=== PATIENT | male | born 1965 | race Caucasian/White ===

== ENCOUNTER 2022-04-07 16:58 | Observation (INO) | payer OTHER, SELFPAY ==
[2022-04-07] VITALS (26 sets, daily range): BP systolic 80–130; BP diastolic 52–79; PULSE 68–95; RESP 0–31; TEMP 36.8; O2SAT 97–100
--- NOTE | ~2022-04-07 | CT_ITS ---
EXAMINATION: CT cervical spine wo con DATE: 04/07/2022 17:52 INDICATION: fall, neck pain TECHNIQUE: Computed tomography (CT) of the cervical spine was performed without intravenous contrast. Automated exposure control and iterative reconstruction technique were employed. The dose-length pro duct was 150.54 mGy-cm. COMPARISON: None. FINDINGS: Vertebral Body Alignment: Intact. . Craniocervical and atlantoaxial alignment: Moderate degenerative change. Alignment intact. Osseous structures/fracture: No evidence of a lytic or blastic process in the visualized spine. No e vidence of acute fracture. . Cervical soft tissues: The paraspinal soft tissues planes are maintained. Severe biapical pleural sca rring with pleural blebs. Degenerative changes: Degenerative changes, without severe neural foraminal or central canal narrowin g. IMPRESSION: No acute fracture or traumatic malalignment in the cervical spine Reviewed, dictated and finalized at location K. EATION DIRECTOR
--- NOTE | ~2022-04-07 | MR_ITS ---
EXAMINATION: MR brain/brain stem wo/w con DATE: 04/09/2022 08:20 INDICATION: Seizure. TECHNIQUE: Magnetic resonance imaging (MRI) of the brain and brainstem was performed without and with 10 mL MultiHance intravenous contrast. COMPARISON: Head CT 04/07/2022 FINDINGS: There are scattered areas of nonspecific increased T2-weighted signal intensity in the cere bral white matter. There is an old lacunar infarct in left caudate nucleus. There is no intracranial hemorrhage, acute infarction, or abnormal intracranial mass lesion. The ventricles are normal in size . There is mucosal thickening in the paranasal sinuses. The orbits are normal. The mastoid air cells are normal. IMPRESSION: 1. Old lacunar infarct in left caudate nucleus. 2. Mild nonspecific cerebral white matter disease, which likely represents chronic small vessel ische susu disease. Reviewed, dictated and finalized at location A. KET WASHER IMPRESSION: 1. Old lacunar infarct in left caudate nucleus. 2. 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
--- NOTE | ~2022-04-07 | CT_ITS ---
EXAMINATION: CT brain wo con DATE: 04/07/2022 17:52 INDICATION: seizure like activity, head injury . TECHNIQUE: Computed tomography (CT) of the head was performed without intravenous contrast. The mA wa s adjusted according to patient size. Iterative reconstruction technique was employed. The dose-lengt h product was 605.33 mGy-cm. COMPARISON: 10/03/2004. FINDINGS: No acute intracranial hemorrhage or extra-axial fluid collection. No hydrocephalus, mass, or herniation. No acute ischemic infarct. Unremarkable dural venous sinus attenuation. No acute osseous abnormality. Minimal mucosal thickening in the left maxillary sinus, the remaining aerated spaces are clear. Mild chronic white matter change including asymmetric focal white matter low density in the left jeremiah etal lobe. Atherosclerotic intracranial calcification. Old left basal ganglia lacunar infarct. IMPRESSION: No acute intracranial process. Asymmetric focal white matter low-density left parietal lobe, likely r epresenting asymmetric chronic white matter change, noting that other causes of white matter edema co uld appear similarly. Consider nonemergent but timely outpatient MR of the brain without and with con trast for further characterization. Reviewed, dictated and finalized at location K. SEAMER IMPRESSION: No acute intracranial process. Asymmetric focal white matter low-density left p arietal lobe, likely representing asymmetric chronic white matter change, notin g that other causes of white matter edema could appear similarly. Consider none mergent but timely outpatient MR of the brain without and with contrast for fur ther characterization.
--- NOTE | 2022-04-07 17:12 | ECG_ITS ---
Measurements Intervals [place] Rate: 81 P: 82 NV: 177 QRS: 63 QRSD: 94 T: 76 QT: 385 QTc: 448 Interpretive Statements SINUS RHYTHM POSSIBLE LEFT ATRIAL ENLARGEMENT DELAYED PRECORDIAL R/S TRANSITION BASELINE WANDER- II, III, AVR, AVF, V1-V2 BORDERLINE ECG NO PREVIOUS ECG AVAILABLE FOR COMPARISON Electronically Signed On 04-08-2022 7:40:35 PET NUTRITION SPECIALIST by Afshin Gonsales D.O.
--- NOTE | 2022-04-07 17:14 | ED.SEIZURE ---
HPI - Seizure General Chief Complaint: Seizure <Prisca Tobin PA-C - Last Filed: 04/07/22 22:09> Stated Complaint: seizure <KEELEY Mcnamara Last Filed: 04/07/22 22:09> Time Seen by Provider: 04/07/22 17:09 <Prisca Tobin PA-C - Last Filed: 04/07/22 22:09> Source: patient and family <KEELEY Mcnamara Last Filed: 04/07/22 22:09> Mode of arrival: EMS <KEELEY Mcnamara Last Filed: 04/07/22 22:09> Limitations: other (patient does not remember incident) <KEELEY Mcnamara Last Filed: 04/07/22 22:09> History of Present Illness HPI Narrative: This is a 56-year-old male that presents to the emergency department after seizure-like activity today. Patient reports he remembers feeling funny . He does not remember the events following. His reports she heard a thud and found him on the floor in the living room with generalized body convulsions. This lasted for a couple of minutes. Patient was noted to be incontinent of urine. She called 911. Upon their arrival he was drowsy and slow to respond. Patient is now alert and oriented and back to baseline. He reports a mild headache. No other focal complaints. Denies fever, vision changes, chest pain, shortness of breath, abdominal pain, vomiting, dysuria, numbness or weakness. <Prisca Tobin PA-C - Last Filed: 04/07/22 22:09> Related Data Allergies/Adverse Reactions: Allergies Allergy/AdvReac Type Severity Reaction Status Date / Time No Known Allergies Allergy Unverified 11/29/15 19:37 <KEELEY Mcnamara Last Filed: 04/07/22 22:09> Review of Systems Review of Systems: CONSTITUTIONAL: Denies fever EYES: Denies visual changes ENT: Denies rhinorrhea, congestion, sore throat CARDIOVASCULAR: Denies chest pain, palpitations RESPIRATORY: Denies cough or dyspnea. GASTROINTESTINAL: Denies abdominal pain, nausea, vomiting GENITOURINARY: Denies dysuria SKIN: Denies rash MUSCULOSKELETAL: Denies back pain, joint pain, or myalgia. NEUROLOGIC: Reports headache. Denies numbness, or weakness. PSYCHIATRIC: Reports depression. <Prisca Tobin PA-C - Last Filed: 04/07/22 22:09> All systems reviewed & are unremarkable except as noted in HPI and below <Prisca Tobin PA-C - Last Filed: 04/07/22 22:09> [facility] Past Medical History Medical History: Medical History History of depression <Prisca Tobin PA-C - Last Filed: 04/07/22 22:09> Social History Social History: Social History (Updated 04/07/22 @ 21:26 by Mamadou Zurita DO) Social History: 1 pack a day smoker Smoking packs per day: 1 Smoking cigarettes per day: 20.0 Smoking status: Current every day smoker Alcohol intake: former Alcohol use details: Quit drinking alcohol month ago, has not relapsed Substance use: current Substance use type: marijuana <Prisca Tobin PA-C - Last Filed: 04/07/22 22:09> Exam Narrative: GENERAL: Well-appearing, well-nourished, and in no acute distress. HEAD: Normocephalic, atraumatic. EYES: PERRLA and EOMI. ENT: Nares clear, no rhinorrhea or epistaxis. Mucous membranes moist. Oropharynx without tonsillar hypertrophy exudate or other lesions. Bilateral TMs p[place] non-bulging NECK: Supple. No adenopathy or masses. CHEST: Clear to auscultation. No respiratory distress. No wheezes rales or rhonchi HEART: Regular rate and rhythm. No murmur heard. Normal peripheral pulses. ABDOMEN: Soft, nontender, nondistended, normal active bowel sounds. EXTREMITIES: Normal range of motion. No edema. Strength equal in bilateral upper and lower extremities (5/5) SKIN: Warm, dry, no rash. NEURO: No focal deficits. Alert and oriented x3. Cranial nerves II through XII grossly intact PSYCH: Normal mood and affect <Prisca Tobin PA-C - Last Filed: 04/07/22 22:09> Course Course Emergency Course: Patient updated on wo
[2022-04-07] MEDS: SODIUM CHLORIDE 0.9% IV 1,000 ML 999 ML IV CONT ×2 (17:33→22:51)
[2022-04-07 17:40] LABS: Basophils Absolute Auto 0.1 K/mm3 (0.0-0.1); Basophils Percent Auto 0.6 % (0.2-1.2); Eosinophils Absolute Auto 0.1 K/mm3 (0-0.3); Eosinophils Percent Auto 0.4 % (0-4.4); Hematocrit 38.6 % (42.0-52.0); Hemoglobin 13.1 g/dL (14.0-18.0); Immature Granulocyte Absolute 0.09 K/mm3 (0.00-0.031); Immature Granulocyte Percent A 0.7 % (0-0.5); Lymphocytes Absolute Auto 1.28 K/mm3 (0.9-3.2); Lymphocytes Percent Auto 10.6 % (18.3-44.2); Mean Corpuscular HGB Conc 33.9 g/dl (32-36); Mean Corpuscular Hemoglobin 31.7 pg (26-34); Mean Corpuscular Volume 93.5 fl (80-100); Mean Platelet Volume 8.8 fl (7.4-10.4); Monocytes Absolute Auto 0.6 K/mm3 (0.1-0.6); Monocytes Percent Auto 4.7 % (2.6-8.5); Neutrophils Absolute Auto 10.1 K/mm3 (1.3-6.7); Platelet Count Result 213 k/mm3 (150-375); Red Blood Count 4.13 M/mm3 (4.6-6.20); Red Cell Distribution Width 13.2 % (11.5-14.5); White Blood Count 12.1 K/mm3 (4.5-10.0)
[2022-04-07 17:49] LABS: Ethanol < 10 mg/dL (<10)
[2022-04-07 17:50] LABS: Alanine Aminotransferase 17 U/L (6-50); Albumin Level 4.3 g/dL (3.5-5.1); Alkaline Phosphatase 100 U/L (38-126); Anion Gap 8 mmol/L (8-16); Aspartate Amino Transferase 26 U/L (17-59); Bilirubin,Total 0.5 mg/dL (0.2-1.3); Blood Urea Nitrogen 11 mg/dL (9-20); Calcium 8.8 mg/dL (8.4-10.2); Carbon Dioxide 23 mmol/L (22-30); Chloride 99 mmol/L (98-107); Estimated CRCL calculation 56 ml/min; Estimated Glomerular Filt Rate > 60; Glucose 147 mg/dL (65-110); Lactic Acid Reflex 2.2 mmol/L (0.7-2.0); Magnesium 1.8 mg/dL (1.6-2.3); Sodium 130 mmol/L (137-145)
[2022-04-07 17:55] LABS: Creatine Kinase 132 U/L (55-170); Lactate Dehydrogenase 238 U/L (120-246)
[2022-04-07] MEDS: levETIRAcetam 1000MG/NACL100ML 1,000 MG/100 ML BAG 400 MG IVPB (18:22)
[2022-04-07 18:36] LABS: Influenza A QL RT-PCR Negative (Negative); Influenza B QL RT-PCR Negative (Negative); SARS-CoV-2 RNA PCR Negative
[2022-04-07 18:51] LABS: Add Urine Microscopic? YES; Appearance Urine Clear (Clear); Bilirubin Urine Negative (Negative); Blood Urine Negative (Negative); Color Urine Yellow (Yellow); Glucose Urine UA Trace mg/dL (Negative); Ketones Urine Trace mg/dL (Negative); Leukocyte Esterase Ur Negative LEU/UL (Negative); Nitrate Urine Negative (Negative); Protein Urine Negative (Negative); Urobilinogen Urine 0.2 mg/dL (<2.0)
[2022-04-07 18:59] LABS: RBC Urine 0-2 /hpf (0-2); WBC Urine 0-3 /hpf
[2022-04-07 19:47] LABS: Hemoglobin A1C 5.7 % (<5.7)
[2022-04-07 19:58] LABS: Amphetamine Screen Urine Negative (Negative); Barbiturate Screen Urine Negative (Negative); Benzodiazepines Screen Urine Negative (Negative); Cannabinoid Screen Urine Positive (Negative); Cocaine Screen Urine Negative (Negative); Methadone Screen Urine Negative (Negative); Opiate Screen Urine Negative (Negative); Phencyclidine Screen Urine Negative (Negative)
[2022-04-07 20:38] LABS: Reflex Lactic Acid Yes or No Add Lactic
--- NOTE | 2022-04-07 20:47 | PM.IMHP ---
H&P: HPI History of Present Illness Date/Time: 04/07/22 20:50 Chief Complaint: Seizure Narrative: Patient is a 56-year-old male past medical history of depression presents to ED with complaints of convulsions and possible seizure. Patient has never had a seizure disorder in the past. He used to be an alcoholic but stopped drinking month ago with no recent use. He has no new medications, no family history of seizure disorder. He denies any trauma to his head. He did know to his that he was feeling little different prior to the episode. He is unable to recall on my evaluation. He denies fever, chills, nausea, diarrhea, focal deficits, vision changes, headache, chest pain, paresthesia, neuropathy. In the ED: Patient was given 1 g of Keppra, no seizure activity in the ED and he was back to baseline mentation. He was slightly hypotensive and given 1 L fluid bolus. Neurology was consulted. Was found to have slight lactic acidosis of 2.2. UDS positive for cannabis. Patient will be admitted for observation for seizure activity. Review of Systems Review of Systems: Constitutional: No Fever, No Chills, No Night Sweats, No Fatigue, No Malaise ENT/Mouth: No Hearing Changes, No Ear Pain, No Nasal Congestion, No Sinus Pain, No Hoarseness, No sore throat, No Rhinorrhea, No Swallowing Difficulty Eyes: No Eye Pain, No Redness, No Vision Changes Cardiovascular: No Chest Pain, No Palpitations, No Dyspnea on Exertion, No Orthopnea, No Claudication, No Edema Respiratory: No Cough, No Sputum, No Wheezing, No Shortness of Breath Gastrointestinal: No Nausea, No Vomiting, No Diarrhea, No Constipation, No Abdominal Pain, No Heartburn, No Hematochezia, No Melena Genitourinary: No Dysuria, No Urinary Frequency, No Hematuria, No Urinary Incontinence, No Urgency Musculoskeletal: No Arthralgias, No Myalgias, No Joint Swelling, No Joint Stiffness, No Back Pain Skin: No Skin Lesions, No Pruritis, No Hair Changes Neuro: No Weakness, No Numbness, No Paresthesias, No Loss of Consciousness, No Syncope, No Dizziness, No Headache Psych: No Anxiety/Panic, No Depression, No Insomnia Heme: No Bruising, No Bleeding Lymph: No Adenopathy Endocrine: No Polyuria, No Polydipsia, No Temperature Intolerance PMFSH Past Medical History Medical History History of depression Social History Social History (Updated 04/07/22 @ 21:26 by Mamadou Zurita DO) Social History: 1 pack a day smoker Smoking packs per day: 1 Smoking cigarettes per day: 20.0 Smoking status: Current every day smoker Alcohol intake: former Alcohol use details: Quit drinking alcohol month ago, has not relapsed Substance use: current Substance use type: marijuana Meds Home Medications and Allergies Allergies Allergy/AdvReac Type Severity Reaction Status Date / Time No Known Allergies Allergy Unverified 11/29/15 19:37 Vital Signs Vital Signs - 24 hr 04/07/22 17:01 04/07/22 17:07 04/07/22 17:28 Temperature Pulse Rate 90 79 Respiratory Rate 20 14 Blood Pressure 101/75 93/76 L Pulse Oximetry 100 100 100 Oxygen Delivery Room Air Room Air 04/07/22 17:30 04/07/22 17:54 04/07/22 18:00 Temperature Pulse Rate 80 83 86 Respiratory Rate 13 22 H 20 Blood Pressure 98/76 L 115/74 117/74 Pulse Oximetry 100 100 100 Oxygen Delivery 04/07/22 18:15 04/07/22 18:30 04/07/22 18:45 Temperature 36.8 C Pulse Rate 83 78 85 Respiratory Rate 31 H 21 H 23 H Blood Pressure 114/79 120/78 130/77 Pulse Oximetry 100 100 100 Oxygen Delivery 04/07/22 19:00 04/07/22 19:15 04/07/22 20:01 Temperature Pulse Rate 82 76 77 Respiratory Rate 26 H 19 18 Blood Pressure 109/74 114/73 97/78 L Pulse Oximetry 100 100 100 Oxygen Delivery 04/07/22 20:02 04/07/22 20:15 Temperature Pulse Rate 84 77 Respiratory Rate 21 H 12 Blood Pressure 97/78 L 93/70 L Pulse Oximetry 99 98 Oxygen Deli
[2022-04-07 21:04] LABS: Lactic Acid 0.7 mmol/L (0.7-2.0)
[2022-04-07] MEDS: SODIUM CHLORIDE 0.9% IV 1,000 ML 125 ML IV CONT (21:43)
[2022-04-07] MEDS: ACETAMINOPHEN 325 MG TABLET 650 MG PO (23:49)
[2022-04-07] MEDS: ONDANSETRON INJ 4 MG/2 ML VIAL IV PUSH (23:51)
[2022-04-08] VITALS (9 sets, daily range): BP systolic 91–131; BP diastolic 48–60; PULSE 50–80; RESP 18–20; TEMP 36.4–36.8; O2SAT 97–100; BMI 18.1
--- NOTE | 2022-04-08 03:01 | PC.NURSE ---
Admitted from the ER via cart to room 312 Pt alert x3 , drowsy. Incontinent of urine, Emesis of approximately 300ml of water with small bits of particles upon arrival to room . Pt states he did not eat entire day. Had witnessed seizure at home per . Per spouse. pt stated he was not feeling well--laid on couch. Spouse heard a bang, saw pt convulsing on the floor. Pt with difficulty explaining what occurred. Pt stated that he came to when in ER. Per spouse , pt has neurologist appointment in May for concern of episodes when pt stares blankly for several minutes at a time then becomes conscious and then is tired. Pt has aura prior to event occurrence. Pt states no home medications. No medical history except saw 1.5 months ago for depression, prescribed prozac, pt took for a month then stopped taking. Smokes 1- 1.5 ppd of cigarettes daily, weed frequently and quit drinking alcohol on 2021. 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 Pt states poor po intake as of habit. No breakfast, little lunch, some dinner Drinks a lot of coffee throughout day. 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 Explained the plan to spouse, Darlene when called her for information Her number is [phone]
[2022-04-08] MEDS: levETIRAcetam 500MG/NACL 100ML 500 MG/100 ML BAG 400 MG IVPB ×2 (05:55→18:02)
[2022-04-08] MEDS: SODIUM CHLORIDE 0.9% IV 1,000 ML 125 ML IV CONT (09:57)
--- NOTE | 2022-04-08 11:18 | PM.IMPN ---
Progress Note: A&P Assessment and Plan (1) Seizure-like activity: Code(s): R56.9 - Unspecified convulsions Status: Acute Assessment and Plan: patient given Keppra 1 g in the ED unclear etiology no recent alcohol use, no history of seizures, no family history of epilepsy. patient stopped his SSRI a week ago neurology consult pending brain MRI ordered, EEG ordered seizure precautions, neurochecks q4hr (2) Depression: Code(s): F32.A - Depression, unspecified Status: Acute Assessment and Plan: Recently discontinued SSRI (3) Hyponatremia: Code(s): E87.1 - Hypo-osmolality and hyponatremia Status: Acute Assessment and Plan: BMP pending for today (4) Lactic acidosis: Code(s): E87.20 - Acidosis, unspecified Status: Acute Assessment and Plan: Resolved with IV fluids, will DC IV fluids today Plan DVT prophylaxis with SCDs GI prophylaxis not indicated Code status full code Subjective Date/time seen: 04/08/22 11:18 Interval history: No overnight events noted. No chest pain or shortness of breath. No diarrhea. No fevers or chills. Patient had an episode of emesis last evening associated with significant nausea. He states he gets a weird smell and then he does not remember much after that. Review of Systems Review of Systems: 12 point review of systems was assessed and was negative except as noted in the HPI Exam Narrative: General: No acute distress, alert and oriented per baseline HEENT: Atraumatic, normocephalic, mucous membranes moist CV: Regular rate and rhythm, S1, S2 Lungs: Clear to auscultation bilaterally, no rales or crackles noted, no wheezes, good air entry Abdomen: Soft, nontender, nondistended Extremities: Normal to inspection Skin: No rashes noted, no lesions or wounds seen Psych: Euthymic, normal affect Neuro: Cranial nerves 2-12 grossly intact, strength +5/5 upper and lower extremities bilaterally Objective Data Vital Signs Vital Signs: Vital Signs - 24 hr 04/07/22 17:01 04/07/22 17:07 04/07/22 17:28 Temperature Pulse Rate 90 79 Respiratory Rate 20 14 Blood Pressure 101/75 93/76 L Pulse Oximetry 100 100 100 Oxygen Delivery Room Air Room Air 04/07/22 17:30 04/07/22 17:54 04/07/22 18:00 Temperature Pulse Rate 80 83 86 Respiratory Rate 13 22 H 20 Blood Pressure 98/76 L 115/74 117/74 Pulse Oximetry 100 100 100 Oxygen Delivery 04/07/22 18:15 04/07/22 18:30 04/07/22 18:45 Temperature 98.2 F Pulse Rate 83 78 85 Respiratory Rate 31 H 21 H 23 H Blood Pressure 114/79 120/78 130/77 Pulse Oximetry 100 100 100 Oxygen Delivery 04/07/22 19:00 04/07/22 19:15 04/07/22 20:01 Temperature Pulse Rate 82 76 77 Respiratory Rate 26 H 19 18 Blood Pressure 109/74 114/73 97/78 L Pulse Oximetry 100 100 100 Oxygen Delivery 04/07/22 20:02 04/07/22 20:15 04/07/22 20:30 Temperature Pulse Rate 84 77 85 Respiratory Rate 21 H 12 21 H Blood Pressure 97/78 L 93/70 L 104/72 Pulse Oximetry 99 98 98 Oxygen Delivery 04/07/22 20:46 04/07/22 21:00 04/07/22 21:15 Temperature Pulse Rate 70 72 75 Respiratory Rate 14 25 H 12 Blood Pressure 104/70 92/64 L 82/69 L Pulse Oximetry 98 98 97 Oxygen Delivery 04/07/22 21:30 04/07/22 22:15 04/07/22 21:45 Temperature Pulse Rate 70 68 75 Respiratory Rate 18 21 H 28 H Blood Pressure 84/61 L 88/61 L 96/64 L Pulse Oximetry 97 99 100 Oxygen Delivery 04/07/22 22:00 04/07/22 22:15 04/07/22 22:48 Temperature Pulse Rate 69 70 Respiratory Rate 0 L 16 18 Blood Pressure 87/59 L 88/61 L 80/52 L Pulse Oximetry 98 Oxygen Delivery 04/07/22 22:53 04/07/22 22:54 04/08/22 00:00 Temperature Pulse Rate 83 81 59 L Respiratory Rate 13 17 Blood Pressure 99/64 L Pulse Oximetry Oxygen Delivery 04/07/22 23:50 04/08/22 04:00 04/08/22 05:47 Temperature 97.5 F L Pulse Rate 95 63 75 Respiratory
[2022-04-08 12:21] LABS: Basophils Absolute Auto 0.1 K/mm3 (0.0-0.1); Basophils Percent Auto 0.7 % (0.2-1.2); Eosinophils Absolute Auto 0.1 K/mm3 (0-0.3); Eosinophils Percent Auto 1.6 % (0-4.4); Hematocrit 34.5 % (42.0-52.0); Hemoglobin 11.6 g/dL (14.0-18.0); Immature Granulocyte Absolute 0.05 K/mm3 (0.00-0.031); Immature Granulocyte Percent A 0.6 % (0-0.5); Lymphocytes Absolute Auto 2.02 K/mm3 (0.9-3.2); Mean Corpuscular HGB Conc 33.6 g/dl (32-36); Mean Corpuscular Hemoglobin 31.2 pg (26-34); Mean Corpuscular Volume 92.7 fl (80-100); Mean Platelet Volume 9.4 fl (7.4-10.4); Monocytes Absolute Auto 0.6 K/mm3 (0.1-0.6); Monocytes Percent Auto 6.5 % (2.6-8.5); Neutrophils Absolute Auto 5.9 K/mm3 (1.3-6.7); Neutrophils Percent Auto 67.6 % (45.5-73.1); Platelet Count Result 216 k/mm3 (150-375); Red Blood Count 3.72 M/mm3 (4.6-6.20); Red Cell Distribution Width 13.2 % (11.5-14.5); White Blood Count 8.8 K/mm3 (4.5-10.0)
[2022-04-08 12:31] LABS: Alanine Aminotransferase 15 U/L (6-50); Albumin Level 3.3 g/dL (3.5-5.1); Alkaline Phosphatase 78 U/L (38-126); Anion Gap 2 mmol/L (8-16); Aspartate Amino Transferase 25 U/L (17-59); Bilirubin,Total 0.6 mg/dL (0.2-1.3); Blood Urea Nitrogen 8 mg/dL (9-20); Calcium 7.8 mg/dL (8.4-10.2); Carbon Dioxide 22 mmol/L (22-30); Chloride 109 mmol/L (98-107); Estimated CRCL calculation 56 ml/min; Estimated Glomerular Filt Rate > 60; Glucose 81 mg/dL (65-110); Potassium 3.9 mmol/L (3.4-5.0); Sodium 133 mmol/L (137-145)
--- NOTE | 2022-04-08 14:22 | WPDNEURCNPN ---
Assessment and Plan Assessment and plan (1) Seizure-like activity: Code(s): R56.9 - Unspecified convulsions Status: Acute Plan 1. Seizure disorder with negative CT scan for the bleed but need for the MRI of the brain in addition to the EEG patient is receiving the anticonvulsant treatment will be continued as such Consult date: 04/08/22 HPI: Jorje Martell is a 56 year old male admitted to the hospital through the emergency room subsequent to the like [place], patient reported he felt finding and was unable to remember the events subsequently reported she heard a 3rd and found him on the floor in the living room with generalized body convulsions which lasted for couple of minutes associated with incontinence of urine she called 911 he was noted to be drowsy and slow to respond but subsequently became alert and back to the baseline complained of mild headache gave no history of any other associated generalized symptomatology, he is not allergic to any medication, does have ongoing history of smoking 1 pack a day smoking packs per day is 1 cigarettes per day 20 and former alcohol intake initial exam in the emergency room was normal with no meningeal signs was admitted to the hospital for the diagnosis of seizure disorder initial vital signs were normal though had low blood pressure, normal routine lab, drug screen positive for the cannabinoids and negative for influenza a and B and starts COVID screen, initial CT of the head negative and so as the cervical spine CT started on levetiracetam 500 mg q.12 hours IV piggyback with loading dose of 1000 mg in the ER [facility] Past Medical History Medical History (Updated 04/08/22 @ 11:20 by Jacinda Hyde DO) Depression History of depression Social History Social History (Updated 04/07/22 @ 21:26 by Mamadou Zurita DO) Social History: 1 pack a day smoker Smoking packs per day: 1 Smoking cigarettes per day: 20.0 Years smoked: 40 Smoking pack-years: 40.00 Smoking status: Heavy tobacco smoker Tobacco type: cigarettes Second hand tobacco smoke exposure: No Alcohol intake: former Alcohol use details: Quit drinking alcohol month ago, has not relapsed Substance use: current Substance use type: marijuana Last use: 04/06/22 Lack of Transportation: No Lack of Food: Never True Current Housing: I Have Housing Concerned About Future Housing: No Difficulty Paying Gas/Electric Bills: No Difficulty Paying for Meds: No Currently Unemployed: No Education: High School Diploma/GED Difficulty w/ Childcare or Family Care: No Spiritual care concerns: No Meds Home Medications and Allergies Allergies Allergy/AdvReac Type Severity Reaction Status Date / Time No Known Allergies Allergy Unverified 11/29/15 19:37 Vital Signs Vital Signs - 24 hr 04/07/22 17:01 04/07/22 17:07 04/07/22 17:28 Temperature Pulse Rate 90 79 Respiratory Rate 20 14 Blood Pressure 101/75 93/76 L Pulse Oximetry 100 100 100 Oxygen Delivery Room Air Room Air 04/07/22 17:30 04/07/22 17:54 04/07/22 18:00 Temperature Pulse Rate 80 83 86 Respiratory Rate 13 22 H 20 Blood Pressure 98/76 L 115/74 117/74 Pulse Oximetry 100 100 100 Oxygen Delivery 04/07/22 18:15 04/07/22 18:30 04/07/22 18:45 Temperature 36.8 C Pulse Rate 83 78 85 Respiratory Rate 31 H 21 H 23 H Blood Pressure 114/79 120/78 130/77 Pulse Oximetry 100 100 100 Oxygen Delivery 04/07/22 19:00 04/07/22 19:15 04/07/22 20:01 Temperature Pulse Rate 82 76 77 Respiratory Rate 26 H 19 18 Blood Pressure 109/74 114/73 97/78 L Pulse Oximetry 100 100 100 Oxygen Delivery 04/07/22 20:02 04/07/22 20:15 04/07/22 20:30 Temperature Pulse Rate 84 77 85 Respiratory Rate 21 H 12 21 H Blood Pressure 97/78 L 93/70 L 104/72 Pulse Oximetry 99 98 98 Oxygen Delivery 04/07/22 20:46 04/07/22 21:00 04/07/22 21:15 Temperature Pulse Rate 70 72 75 Respirat
[2022-04-09] VITALS: PULSE 55
[2022-04-09 04:00] VITALS: PULSE 66
[2022-04-09] MEDS: levETIRAcetam 500MG/NACL 100ML 500 MG/100 ML BAG 400 MG IVPB ×2 (05:18→17:12)
[2022-04-09 05:46] VITALS: BP 94/55; PULSE 62; RESP 18; TEMP 36.6; O2SAT 99
[2022-04-09 06:45] LABS: Basophils Absolute Auto 0.1 K/mm3 (0.0-0.1); Basophils Percent Auto 0.7 % (0.2-1.2); Eosinophils Absolute Auto 0.2 K/mm3 (0-0.3); Eosinophils Percent Auto 1.8 % (0-4.4); Hematocrit 37.3 % (42.0-52.0); Hemoglobin 12.4 g/dL (14.0-18.0); Immature Granulocyte Absolute 0.05 K/mm3 (0.00-0.031); Immature Granulocyte Percent A 0.5 % (0-0.5); Lymphocytes Absolute Auto 1.85 K/mm3 (0.9-3.2); Lymphocytes Percent Auto 18.8 % (18.3-44.2); Mean Corpuscular HGB Conc 33.2 g/dl (32-36); Mean Corpuscular Hemoglobin 31.6 pg (26-34); Mean Corpuscular Volume 94.9 fl (80-100); Mean Platelet Volume 9.1 fl (7.4-10.4); Monocytes Absolute Auto 0.7 K/mm3 (0.1-0.6); Neutrophils Percent Auto 71.2 % (45.5-73.1); Platelet Count Result 235 k/mm3 (150-375); Red Blood Count 3.93 M/mm3 (4.6-6.20); Red Cell Distribution Width 13.3 % (11.5-14.5); White Blood Count 9.9 K/mm3 (4.5-10.0)
[2022-04-09 06:54] LABS: Alanine Aminotransferase 16 U/L (6-50); Albumin Level 3.6 g/dL (3.5-5.1); Alkaline Phosphatase 82 U/L (38-126); Anion Gap 7 mmol/L (8-16); Aspartate Amino Transferase 27 U/L (17-59); Bilirubin,Total 0.8 mg/dL (0.2-1.3); Blood Urea Nitrogen 12 mg/dL (9-20); Calcium 8.1 mg/dL (8.4-10.2); Carbon Dioxide 19 mmol/L (22-30); Chloride 112 mmol/L (98-107); Estimated CRCL calculation 56 ml/min; Estimated Glomerular Filt Rate > 60; Glucose 72 mg/dL (65-110); Sodium 138 mmol/L (137-145)
--- NOTE | 2022-04-09 08:25 | PM.IMPN ---
Progress Note: A&P Assessment and Plan (1) Seizure-like activity: Code(s): R56.9 - Unspecified convulsions Status: Acute Assessment and Plan: Appreciate neurology consultation, follow-up MRI an EEG, continue Keppra (2) Depression: Code(s): F32.A - Depression, unspecified Status: Acute Assessment and Plan: Recently discontinued SSRI (3) Hyponatremia: Code(s): E87.1 - Hypo-osmolality and hyponatremia Status: Acute Assessment and Plan: Resolved (4) Lactic acidosis: Code(s): E87.20 - Acidosis, unspecified Status: Acute Assessment and Plan: Resolved Plan DVT prophylaxis with SCDs GI prophylaxis not indicated Code status full code Subjective Date/time seen: 04/09/22 08:25 Interval history: No overnight events noted. No chest pain or shortness of breath. No diarrhea. No fevers or chills. No seizure episodes or weird smells. Review of Systems Review of Systems: 12 point review of systems was assessed and was negative except as noted in the HPI Exam Narrative: General: No acute distress, alert and oriented per baseline HEENT: Atraumatic, normocephalic, mucous membranes moist CV: Regular rate and rhythm, S1, S2 Lungs: Clear to auscultation bilaterally, no rales or crackles noted, no wheezes, good air entry Abdomen: Soft, nontender, nondistended Extremities: Normal to inspection Skin: No rashes noted, no lesions or wounds seen Psych: Euthymic, normal affect Neuro: Cranial nerves 2-12 grossly intact, strength +5/5 upper and lower extremities bilaterally Objective Data Vital Signs Vital Signs: Vital Signs - 24 hr 04/08/22 12:00 04/08/22 14:00 04/08/22 16:00 Temperature 98.0 F Pulse Rate 60 57 L 80 Respiratory Rate 20 Blood Pressure 104/58 L Pulse Oximetry 100 04/08/22 21:35 04/08/22 20:00 04/09/22 00:00 Temperature 98.2 F Pulse Rate 70 67 55 L Respiratory Rate 18 Blood Pressure 91/48 L Pulse Oximetry 98 04/09/22 04:00 04/08/22 20:00 04/09/22 05:46 Temperature 97.9 F Pulse Rate 66 62 Respiratory Rate 18 Blood Pressure 100/60 94/55 L Pulse Oximetry 99 Intake/Output Intake/Output: Intake & Output 04/06/22 04/07/22 04/08/22 04/09/22 23:59 23:59 23:59 23:59 Intake Total 1200 2505 200 Output Total 300 300 Balance 1200 2205 -100 Meds/Results Medications: Active Medications Generic Name Dose Route Start Last Admin Trade Name Freq PRN Reason Stop Dose Admin Acetaminophen 650 mg 04/07/22 21:31 04/07/22 23:49 Acetaminophen 325 Mg Tablet PO 650 mg Q4H PRN Administration Mild Pain (1-3) or Fever Levetiracetam 500 mg in 100 mls @ 400 mls/hr 04/08/22 06:00 04/09/22 05:18 Keppra Iv IVPB 400 mls/hr Q12H MERT Administration Ondansetron HCl 4 mg 04/07/22 21:31 04/07/22 23:51 Ondansetron Inj 4 Mg/2 Ml Vial IV PUSH 4 mg Q6H PRN Administration Nausea And Vomiting Radiology Results: ITS Impressions Head CT 04/07/22 17:54 IMPRESSION: No acute intracranial process. Asymmetric focal white matter low-density left parietal lobe, likely representing asymmetric chronic white matter change, noting that other causes of white matter edema could appear similarly. Consider nonemergent but timely outpatient MR of the brain without and with contrast for further characterization. Cervical Spine CT 04/07/22 17:59 IMPRESSION: No acute fracture or traumatic malalignment in the cervical spine Brain MRI 04/09/22 08:21 IMPRESSION: 1. Old lacunar infarct in left caudate nucleus. 2. Mild nonspecific cerebral white matter disease, which likely represents chronic small vessel ischemic disease. Labs Labs: Laboratory Results - last 24 hr 04/08/22 04/08/22 04/09/22 11:45 11:45 06:26 WBC 8.8 9.9 RBC 3.72 L 3.93 L Hgb 11.6 L 12.4 L Hct 34.5 L 37.3 L MCV 92.7 94.9 MCH 31.2 31.6 MCHC
[2022-04-09 13:54] VITALS: BP 116/52; PULSE 79; RESP 18; TEMP 36.8; O2SAT 99
[2022-04-09 20:00] VITALS: PULSE 76
[2022-04-09 21:22] VITALS: BP 115/57; PULSE 66; RESP 14; TEMP 36.7; O2SAT 97
[2022-04-10] VITALS: PULSE 56
[2022-04-10 04:00] VITALS: PULSE 68
[2022-04-10 05:37] VITALS: BP 135/59; PULSE 76; RESP 14; TEMP 36.4; O2SAT 99
[2022-04-10 06:45] LABS: Basophils Absolute Auto 0.1 K/mm3 (0.0-0.1); Eosinophils Absolute Auto 0.3 K/mm3 (0-0.3); Hematocrit 40.1 % (42.0-52.0); Hemoglobin 13.3 g/dL (14.0-18.0); Immature Granulocyte Absolute 0.04 K/mm3 (0.00-0.031); Immature Granulocyte Percent A 0.5 % (0-0.5); Lymphocytes Absolute Auto 2.08 K/mm3 (0.9-3.2); Lymphocytes Percent Auto 23.6 % (18.3-44.2); Mean Corpuscular HGB Conc 33.2 g/dl (32-36); Mean Corpuscular Hemoglobin 31.9 pg (26-34); Mean Corpuscular Volume 96.2 fl (80-100); Mean Platelet Volume 9.1 fl (7.4-10.4); Monocytes Absolute Auto 0.7 K/mm3 (0.1-0.6); Neutrophils Absolute Auto 5.6 K/mm3 (1.3-6.7); Neutrophils Percent Auto 63.9 % (45.5-73.1); Platelet Count Result 233 k/mm3 (150-375); Red Blood Count 4.17 M/mm3 (4.6-6.20); Red Cell Distribution Width 13.2 % (11.5-14.5); White Blood Count 8.8 K/mm3 (4.5-10.0)
[2022-04-10 06:55] LABS: Alanine Aminotransferase 16 U/L (6-50); Albumin Level 3.7 g/dL (3.5-5.1); Alkaline Phosphatase 78 U/L (38-126); Anion Gap 4 mmol/L (8-16); Aspartate Amino Transferase 25 U/L (17-59); Bilirubin,Total 0.8 mg/dL (0.2-1.3); Blood Urea Nitrogen 13 mg/dL (9-20); Calcium 8.4 mg/dL (8.4-10.2); Carbon Dioxide 22 mmol/L (22-30); Chloride 107 mmol/L (98-107); Estimated CRCL calculation 56 ml/min; Estimated Glomerular Filt Rate > 60; Glucose 76 mg/dL (65-110); Potassium 4.1 mmol/L (3.4-5.0); Sodium 133 mmol/L (137-145)
[2022-04-10] MEDS: levETIRAcetam 500MG/NACL 100ML 500 MG/100 ML BAG 400 MG IVPB (07:00)
--- NOTE | 2022-04-10 10:56 | PM.IMPN ---
Progress Note: A&P Assessment and Plan (1) Seizure-like activity: Code(s): R56.9 - Unspecified convulsions Status: Acute Assessment and Plan: Appreciate neurology consultation, MRI brain within normal limits, follow-up EEG, continue Keppra (2) Depression: Code(s): F32.A - Depression, unspecified Status: Acute Assessment and Plan: Recently discontinued SSRI (3) Hyponatremia: Code(s): E87.1 - Hypo-osmolality and hyponatremia Status: Acute Assessment and Plan: Resolved (4) Lactic acidosis: Code(s): E87.20 - Acidosis, unspecified Status: Acute Assessment and Plan: Resolved Plan DVT prophylaxis with SCDs GI prophylaxis not indicated Code status full code Subjective Date/time seen: 04/10/22 10:56 Interval history: No overnight events noted. No chest pain or shortness of breath. No nausea, vomiting or diarrhea. No fevers or chills. Review of Systems Review of Systems: 12 point review of systems was assessed and was negative except as noted in the HPI Exam Narrative: General: No acute distress, alert and oriented per baseline HEENT: Atraumatic, normocephalic, mucous membranes moist CV: Regular rate and rhythm, S1, S2 Lungs: Clear to auscultation bilaterally, no rales or crackles noted, no wheezes, good air entry Abdomen: Soft, nontender, nondistended Extremities: Normal to inspection Skin: No rashes noted, no lesions or wounds seen Psych: Euthymic, normal affect Neuro: Cranial nerves 2-12 grossly intact, strength +5/5 upper and lower extremities bilaterally Objective Data Vital Signs Vital Signs: Vital Signs - 24 hr 04/09/22 13:54 04/09/22 21:22 04/10/22 05:37 Temperature 98.2 F 98.0 F 97.5 F L Pulse Rate 79 66 76 Respiratory Rate 18 14 14 Blood Pressure 116/52 L 115/57 L 135/59 L Pulse Oximetry 99 97 99 04/09/22 20:00 04/10/22 00:00 04/10/22 04:00 Temperature Pulse Rate 76 56 L 68 Respiratory Rate Blood Pressure Pulse Oximetry Intake/Output Intake/Output: Intake & Output 04/07/22 04/08/22 04/09/22 04/10/22 23:59 23:59 23:59 23:59 Intake Total 1200 2505 720 960 Output Total 300 300 Balance 1200 2205 420 960 Meds/Results Medications: Active Medications Generic Name Dose Route Start Last Admin Trade Name Gill PRN Reason Stop Dose Admin Acetaminophen 650 mg 04/07/22 21:31 04/07/22 23:49 Acetaminophen 325 Mg Tablet PO 650 mg Q4H PRN Administration Mild Pain (1-3) or Fever Levetiracetam 500 mg in 100 mls @ 400 mls/hr 04/08/22 06:00 04/10/22 07:15 Keppra Iv IVPB Infused Q12H MERT Infusion Ondansetron HCl 4 mg 04/07/22 21:31 04/07/22 23:51 Ondansetron Inj 4 Mg/2 Ml Vial IV PUSH 4 mg Q6H PRN Administration Nausea And Vomiting Radiology Results: ITS Impressions Head CT 04/07/22 17:54 IMPRESSION: No acute intracranial process. Asymmetric focal white matter low-density left parietal lobe, likely representing asymmetric chronic white matter change, noting that other causes of white matter edema could appear similarly. Consider nonemergent but timely outpatient MR of the brain without and with contrast for further characterization. Cervical Spine CT 04/07/22 17:59 IMPRESSION: No acute fracture or traumatic malalignment in the cervical spine Brain MRI 04/09/22 08:21 IMPRESSION: 1. Old lacunar infarct in left caudate nucleus. 2. Mild nonspecific cerebral white matter disease, which likely represents chronic small vessel ischemic disease. Labs Labs: Laboratory Results - last 24 hr 04/10/22 04/10/22 06:16 06:16 WBC 8.8 RBC 4.17 L Hgb 13.3 L Hct 40.1 L MCV 96.2 MCH 31.9 MCHC 33.2 RDW 13.2 Plt Count 233 MPV 9.1 Immature Gran % (Auto) 0.5 Neut % (Auto) 63.9 Lymph % (Auto) 23.6 [place] % (Auto) 8.0 Eos % (Auto) 3.0 Baso % (Auto) 1.0 Lymph # (Auto) 2.08
[2022-04-10 14:00] VITALS: BP 123/60; PULSE 63; RESP 16; TEMP 36.6; O2SAT 98
--- NOTE | 2022-04-10 15:29 | PM.DS ---
DS: Admitting Diagnosis Discharge Date 04/10/2022 Admitting Diagnosis Seizure-like activity DS: Discharge Diagnosis Discharge Diagnosis (1) Seizure-like activity: Code(s): R56.9 - Unspecified convulsions Status: Acute Assessment and Plan: Appreciate neurology consultation, MRI brain within normal limits, follow-up EEG, continue Keppra (2) Depression: Code(s): F32.A - Depression, unspecified Status: Acute Assessment and Plan: Recently discontinued SSRI (3) Hyponatremia: Code(s): E87.1 - Hypo-osmolality and hyponatremia Status: Acute Assessment and Plan: Resolved (4) Lactic acidosis: Code(s): E87.20 - Acidosis, unspecified Status: Acute Assessment and Plan: Resolved Plan DVT prophylaxis with SCDs GI prophylaxis not indicated Code status full code DS: Summary Hospital Course Hospital Course: 56-year-old male with past medical history significant for depression presents to the ER with possible seizure. In the ER, he was given 1g of Keppra and was noted to be at his baseline mentation. Neurology was consulted. Patient states he will get a weird smell and then he has a period where he is nonresponsive and then he feels a little tired for a while afterwards. Brain MRI was ordered and was essentially normal. EEG was ordered and is pending. Patient was continued on Keppra. Patient had no episodes while he was here. Patient did have an episode of nausea and emesis x1 on his 1st day of admission. He was discharged in good condition with close outpatient follow-up with Neurology. Medications per med rec. Time Spent with Patient Time attestation: Total time spent providing and/or coordinating discharge services: Exam Narrative: General: No acute distress, alert and oriented per baseline HEENT: Atraumatic, normocephalic, mucous membranes moist CV: Regular rate and rhythm, S1, S2 Lungs: Clear to auscultation bilaterally, no rales or crackles noted, no wheezes, good air entry Abdomen: Soft, nontender, nondistended Extremities: Normal to inspection Skin: No rashes noted, no lesions or wounds seen Psych: Euthymic, normal affect Neuro: Cranial nerves 2-12 grossly intact, strength +5/5 upper and lower extremities bilaterally DS: Data Data Completed and Pending Labs on day of discharge: Labs from last 24 hours 04/10/22 04/10/22 06:16 06:16 WBC 8.8 RBC 4.17 L Hgb 13.3 L Hct 40.1 L MCV 96.2 MCH 31.9 MCHC 33.2 RDW 13.2 Plt Count 233 MPV 9.1 Immature Gran % (Auto) 0.5 Neut % (Auto) 63.9 Lymph % (Auto) 23.6 [place] % (Auto) 8.0 Eos % (Auto) 3.0 Baso % (Auto) 1.0 Lymph # (Auto) 2.08 [place] # (Auto) 0.7 H Eos # (Auto) 0.3 Baso # (Auto) 0.1 Abs Immat Gran (auto) 0.04 H Absolute Neuts (auto) 5.6 Absolute Nucleated RBC 0.0 Nucleated RBC % 0.0 Sodium 133 L Potassium 4.1 Chloride 107 Carbon Dioxide 22 Anion Gap 4 L BUN 13 Creatinine 1.00 Estim Creat Clear Calc 56 Estimated GFR > 60 Glucose 76 Calcium 8.4 Total Bilirubin 0.8 AST 25 ALT 16 Alkaline Phosphatase 78 Total Protein 7.0 Albumin 3.7 Discharge Plan Discharge Attending physician on discharge: Jacinda Hyde Consulting providers: Dani Xiong ; Prisca Tobin Discharging Clinician: Jacinda Hyde Patient Disposition: Home, Self-Care Activity: other - see discharge instructions Diet: as tolerated Patient Instructions: Antibiotic Form, How to Stop Smoking (DC), New-Onset Seizure in Adults (DC) Stand Alone Forms: General Discharge Information Follow-up/Referrals: Dani Xiong MD [Physician] - PHYSICIAN NOT ON STAFF,NONSTAFF [Primary Care Provider] - Discharge Medications: New levetiracetam [Keppra] 500 mg Tablet 500 mg PO BID Qty: 60 0RF Date of admission: 04/07/22 20:49 Primary Care Provider: PHYSICIAN NOT ON STAFF,NONSTAFF Admitti
--- NOTE | 2022-04-11 10:22 | WPDNEUROLOGY ---
Neurology EEG Report General Information Date of Study: 04/10/22 TEST Routine EEG DIAGNOSIS Seizure CONDITION OF RECORDING Awake, drowsy, and asleep EEG NUMBER [id number] CLINICAL HISTORY Patient reports he had a grand mal seizure about 3 days ago. No prior history of seizures. EEG DESCRIPTION During the awake state with eyes closed the background consists of 9-10Hz posterior dominant rhythm which attenuates appropriately with eye opening. The recording is continuous. There is a well developed anterior-posterior gradient. No significant asymmetries of background activities are noted. With drowsiness there is was waxing and waning of the dominant rhythm with eventual replacement by a mixture of beta, alpha, and theta activity. As the patient enters stage II sleep, symmetrical spindles are present. There are occasional sharply contoured waveforms in the right temporal region (T6) noted during drowsiness and sleep. There are no electrographic seizures during this recording. Hyperventilation and photic stimulation were not performed. IMPRESSION This is an abnormal routine EEG recorded in awake, drowsy, and asleep states due to the presence of occasional sharply contoured waveforms in the right temporal region. In the appropriate setting, this could be suggestive of a decreased threshold to have seizures from a focal onset mechanism. No electrographic seizures noted. Clinical correlation recommended.
== END 2022-04-10 16:20 | disposition home or self-care (01) ==
LOC: ANHED 20:48 → ANH3MEDSUR 22:00
PROVIDERS: Physician Assistant; Admitting Provider Student in an Organized Health Care Education/Training Program; Emergency Provider Student in an Organized Health Care Education/Training Program; Visit Provider Student in an Organized Health Care Education/Training Program
DX: R56.9 Unspecified convulsions (principal); E87.1 Hypo-osmolality and hyponatremia; F32.A Depression, unspecified; I95.9 Hypotension, unspecified; E87.20 Acidosis, unspecified; F17.210 Nicotine dependence, cigarettes, uncomplicated; F12.90 Cannabis use, unspecified, uncomplicated; F10.21 Alcohol dependence, in remission; R94.01 Abnormal electroencephalogram [EEG]
CPT/HCPCS: 36415; 70450; 70553; 72125; 80053; 80307; 81001; 82550; 83036; 83605; 83615; 83735; 85025; 87636; 93005; 95816; 96361; 96365; 96367; 96374; 96375; 96376; 99285; A9270; A9577; G0378; J0131; J1953; J2405; J7030

== ENCOUNTER 2023-02-10 12:16 | Inpatient (IN) | payer OTHER, SELFPAY ==
[2023-02-10] VITALS (24 sets, daily range): BP systolic 81–150; BP diastolic 56–93; PULSE 62–209; RESP 17–40; TEMP 36.3–38; O2SAT 93–100; BMI 19.0; BMI 19.3
--- NOTE | ~2023-02-10 | CT_ITS ---
EXAMINATION: CT brain wo con DATE: 02/10/2023 14:48 INDICATION: Status epilepticus TECHNIQUE: Computed tomography (CT) of the head was performed without intravenous contrast. Sagittal and coronal reconstructions were performed. The mA was adjusted according to patient size. Iterative reconstruction technique was employed. The dose-length product was 605.33 mGy-cm. COMPARISON: head CT dated 04/07/2022 and brain MR dated 04/09/2022 FINDINGS: Unchanged small old lacunar infarct at the head of the left caudate nucleus. No acute intracranial he morrhage, acute infarction or abnormal extra axial fluid collection. There is mild scattered white ma tter hypoattenuation consistent with chronic small vessel ischemic disease. Ventricles are normal an d symmetric. No mass/mass effect. The orbits, paranasal sinuses and mastoid air cells are normal. IMPRESSION: 1. Unchanged small old lacunar infarct at the head of the left caudate nucleus. No acute intracranial process. 2. Additional mild scattered white matter hypoattenuation consistent with chronic small vessel ischem ic disease. Reviewed, dictated and finalized at location A. ER PILOT IMPRESSION: 1. Unchanged small old lacunar infarct at the head of the left caudate nucleus. No acute intracranial process. 2. Additional mild scattered white matter hypoattenuation consistent with chron ic small vessel ischemic disease.
--- NOTE | ~2023-02-10 | XR_ITS ---
EXAMINATION: XR chest 1V portable DATE: 02/10/2023 21:53 INDICATION: Leukocytosis TECHNIQUE: frontal view of the chest was obtained. COMPARISON: None FINDINGS: Emphysema with bullous change and pleural parenchymal scarring at the bilateral apices as also seen o n cervical spine CT dated 04/07/2022. No other airspace opacities, pulmonary edema, pleural effusion or pneumothorax. Cardiomediastinal silhouette is normal. Visualized bones and soft tissues are unrema rkable. IMPRESSION: 1. 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 No other acute cardiopulmonary disea se. Reviewed, dictated and finalized at location A. OMIC ANALYST IMPRESSION: 1. 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 No other acute cardiopulmonary disease.
--- NOTE | 2023-02-10 12:49 | ED.SEIZURE ---
HPI - Seizure General Chief Complaint: Seizure Stated Complaint: seizure Time Seen by Provider: 02/10/23 12:24 Source: family and other (RN verbal report she received) Limitations: altered mental status and clinical condition History of Present Illness HPI Narrative: This is a 57 year old male who presents to the ED after report of a seizure. Initially patient confused, unintelligible speech but writhing around in bed. Not diaphoretic, not following commands. Not tremulous. arrives and provides additional history. She found him on the ground having generalized seizure activity this morning. Unknown how long he was seizing prior to her entry in the room but she witnessed approximately 1 minutes of activity that aborted on its own. Patient's first seizure was 04/07/22. Workup performed which included MRI and EEG. Patient initially placed on 500mg BID Keppra later uptitrated to 1000mg BID. He was intermittently taking this medication, missing some doses. Patient had work up on 06/26/22 for weight loss, decreased appetite, and increased lethargy. Patient saw his neurologist (Shira/Dash?) within the past month and Keppra was discontinued and patient was placed on lacosamide 100mg BID. reports better compliance with this medication and has pill bottle which has a reasonable number of pills missing/remaining. states he was eager to get his driving privilege re-instated which had been discussed at his previous neurology appointment as a possibility. 2 days prior, patient did endorse to that he had been having episodes of olfactory auras, which had been noted prior to his seizure 04/07/22 and which he had intermittently had since. notes when he has had seizures, he has a prolonged postictal period. No complaints of coughing, diarrhea, fevers in the past few days, only complaint of sneezing earlier this morning. Sleeping ok recently. Former heavy drinker but only once in the past month (4-5 beers during this episode). Never withdrawn from alcohol. Related Data Home Medications Medication Instructions Recorded Confirmed lacosamide 100 mg tablet 100 mg PO BID 02/10/23 02/10/23 Allergies Allergy/AdvReac Type Severity Reaction Status Date / Time No Known Allergies Allergy Unverified 11/29/15 19:37 [facility] Past Medical History Medical History (Updated 02/11/23 @ 10:47 by Lizbeth Baca MD) Depression Seizure Tobacco abuse Social History Social History Social History: Surrogate medical decision maker: Poppy Gama, spouse. Code status: Full code. Smoking packs per day: 1 Smoking cigarettes per day: 20.0 Years smoked: 40 Smoking pack-years: 40.00 Smoking status: Heavy tobacco smoker Tobacco type: cigarettes Second hand tobacco smoke exposure: No Alcohol intake: current Alcohol use details: Drank heavily prior to April 2022. Now drinks perhaps 5 beers a month. Substance use: current Substance use type: marijuana Last use: 04/06/22 Lack of Transportation: No Lack of Food: Never True Current Housing: I Have Housing Concerned About Future Housing: No Difficulty Paying Gas/Electric Bills: No Difficulty Paying for Meds: No Currently Unemployed: No Education: High School Diploma/GED Difficulty w/ Childcare or Family Care: No Spiritual care concerns: No Exam Const: General: ill appearing; No alert or diaphoretic Nutritional Appearance: thin Orientation/consciousness: confusion Limitations: altered mental status HENMT: Head: normal to inspection, no contusions, no hematomas and no lacerations Ears: external ears normal Neck: Neck: normal visual inspection Chest: Chest palpation & inspection: normal inspection of the chest Resp: Effort & Inspection: normal respiratory effort, not labored, no retractions, not tachypneic and no use of accessory muscles Skin: General skin exam:
[2023-02-10] MEDS: LORazepam INJ (*CRX) 2 MG/ML VIAL 0.5 MG IM (12:55)
[2023-02-10 13:52] LABS: Hematocrit 40.6 % (42.0-52.0); Hemoglobin 13.5 g/dL (14.0-18.0); Immature Platelet Fraction Pct 3.4 % (0.9-11.2); Mean Corpuscular HGB Conc 33.3 g/dl (32-36); Mean Corpuscular Hemoglobin 30.9 pg (26-34); Mean Corpuscular Volume 92.9 fl (80-100); Mean Platelet Volume 9.1 fl (7.4-10.4); Platelet Count Result 257 k/mm3 (150-375); Red Blood Count 4.37 M/mm3 (4.6-6.20); Red Cell Distribution Width 13.4 % (11.5-14.5); White Blood Count 20.2 K/mm3 (4.5-10.0)
[2023-02-10 14:04] LABS: Ethanol < 10 mg/dL (<10)
[2023-02-10 14:05] LABS: Alanine Aminotransferase 16 U/L (6-50); Albumin Level 4.6 g/dL (3.5-5.1); Alkaline Phosphatase 95 U/L (38-126); Anion Gap 13 mmol/L (8-16); Aspartate Amino Transferase 28 U/L (17-59); Bilirubin,Total 0.6 mg/dL (0.2-1.3); Blood Urea Nitrogen 15 mg/dL (9-20); Calcium 9.6 mg/dL (8.4-10.2); Carbon Dioxide 19 mmol/L (22-30); Chloride 102 mmol/L (98-107); Estimated Glomerular Filt Rate 57; Glucose 109 mg/dL (65-110); Potassium 4.4 mmol/L (3.4-5.0); Sodium 134 mmol/L (137-145)
[2023-02-10] MEDS: MIDAZOLAM HCL (*CRX) 2 MG/2 ML VIAL 6 MG (14:07)
[2023-02-10 14:15] LABS: Band Neutrophils Percent 9 % (0-6); Basophils Percent Manual 1 % (0-1); Lymphocytes Absolute Manual 1.61 K/mm3 (1.1-4.5); Metamyelocytes Percent 1 %; Monocytes Percent Manual 1 % (3-9); Neutrophils Absolute Manual 17.97 K/mm3 (1.3-6.7); Neutrophils Percent Manual 80 % (46-73); Total Cells Counted 100
[2023-02-10 14:16] LABS: Platelet Estimate Adequate (Adequate); Schistocytes None Seen (NORMAL)
[2023-02-10] MEDS: levETIRAcetam IV 3,000 MG in DEXTROSE 5% 100 ML 460 MG IVPB (14:23)
--- NOTE | 2023-02-10 14:31 | PC.NURSE ---
at 1404, this RN walked into pts room. Pt was staring into space and not responding to voice. was at bedside and facing pt. Rn noticed pt starting to seize at 1405, ERP was called to room to eval. Pt was laying on R side, Yanker and sunction set up, 15L non-rebreather applied at this time.
[2023-02-10 14:50] LABS: Amphetamine Screen Urine Negative (Negative); Barbiturate Screen Urine Negative (Negative); Benzodiazepines Screen Urine Negative (Negative); Cannabinoid Screen Urine Positive (Negative); Cocaine Screen Urine Negative (Negative); Methadone Screen Urine Negative (Negative); Opiate Screen Urine Negative (Negative); Phencyclidine Screen Urine Negative (Negative)
--- NOTE | 2023-02-10 15:38 | PM.IMHP ---
H&P: HPI History of Present Illness Date/Time: 02/10/23 16:50 Chief Complaint: Seizure. Narrative: This is a 57-year-old male with history of seizures as of April 2022 and depression who presented to the emergency department via EMS for evaluation of a seizure. The patient remains postictal and a majority of the following history is obtained via a review of his chart as well as information provided by family members. He was hospitalized at the beginning of the year with new onset seizure and he had been on levetiracetam up until about a month ago when he was switched to lacosamide. Family members believe he has been mostly compliant with his medication however he has mention that they do make him fatigued. Not long prior to arrival family members found him having an active seizure on the floor which aborted with approximately 1 minute however it is unclear how long he had been down or how long he had been seizing prior to their arrival. He was postictal thereafter and he remained confused on arrival to the ED. He had another witnessed seizure which lasted approximately 1 minute. At the time my evaluation he will arouse to name but is confused and answers questions nonsensically. He is agitated. It should be noted that he has a history of alcohol abuse but has cut down significantly. His last drink was reportedly a couple of weeks ago and he drinks 5 beers at that time. In the ED: He was afebrile on arrival with stable blood pressures. Heart rate has been in the low 100s, sinus tachycardia. Labs were significant for a WBC count of 20.2 (80% neutrophils, 9% bands), sodium 134, carbon dioxide 19, ethyl alcohol less than 10. Urine drug screen was positive for cannabinoids. Brain CT showed no acute findings. He received 3000 mg loading dose of levetiracetam IV, 1 mg lorazepam, and 5 mg midazolam. He is being admitted in this setting for close monitoring and neurology consultation. Review of Systems Review of Systems: Unable to be obtained accurately as he is postictal. [facility] Past Medical History Medical History Depression Tobacco abuse Social History Social History (Updated 02/10/23 @ 21:15 by aSndra Roper PA-C) Social History: Surrogate medical decision maker: Poppy Adamsandri, spouse. Code status: Full code. Smoking packs per day: 1 Smoking cigarettes per day: 20.0 Years smoked: 40 Smoking pack-years: 40.00 Smoking status: Heavy tobacco smoker Tobacco type: cigarettes Second hand tobacco smoke exposure: No Alcohol intake: current Alcohol use details: Drank heavily prior to April 2022. Now drinks perhaps 5 beers a month. Substance use: current Substance use type: marijuana Last use: 04/06/22 Lack of Transportation: No Lack of Food: Never True Current Housing: I Have Housing Concerned About Future Housing: No Difficulty Paying Gas/Electric Bills: No Difficulty Paying for Meds: No Currently Unemployed: No Education: High School Diploma/GED Difficulty w/ Childcare or Family Care: No Spiritual care concerns: No Meds Home Medications and Allergies Home Medications Medication Instructions Recorded Confirmed Type lacosamide 100 mg tablet 100 mg PO BID 02/10/23 02/10/23 History Allergies Allergy/AdvReac Type Severity Reaction Status Date / Time No Known Allergies Allergy Unverified 11/29/15 19:37 Vital Signs Vital Signs - 24 hr 02/10/23 12:15 02/10/23 14:08 02/10/23 13:01 Temperature 97.4 F L Pulse Rate Respiratory Rate 20 Blood Pressure 95/64 L Pulse Oximetry 97 99 Oxygen Delivery Room Air Non-Rebreather Mask Oxygen Flow Rate 15 02/10/23 14:01 02/10/23 14:05 02/10/23 14:06 Temperature Pulse Rate 209 H Respiratory Rate 30 H Blood Pressure 81/66 L 103/63 Pulse Oximetry Oxygen Delivery Oxygen Flow Rate 02/10/23 14:17 02/10/23 14:32 02/10/23 15:18
--- NOTE | 2023-02-10 16:01 | PC.NURSE ---
At 1554, the patient demonstrated behaviors that are a threat to themselves. ER provider has seen and evaluated this patient face to face. The patient's immediate situation notes soft non-violent restraints needed for pts safety.
--- NOTE | 2023-02-10 16:04 | PC.NURSE ---
Patient has good sensation and distal pulses in richi hands. Educated pts family that when the patient exhibits safe behavior toward themselves, the restraints will be removed safely.
--- NOTE | 2023-02-10 17:29 | ADMGEN ---
This patient, Jorje Martell, was admitted to Intensive Care Unit-7 at 1720. Patient/family oriented to hospital policies and general routines including ID bracelet, bed and alarms, visiting hours, pain management, procedures, bathroom and other care routines, personal items, smoking policy, room service/diet, and visiting hours. Information on how to activate the Rapid Response Team has been discussed. Patient/Family are encouraged to report perceived risks to care and to ask questions if they do not understand what they are told or what they should do.
[2023-02-10] MEDS: LORazepam INJ (*CRX) 2 MG/ML VIAL IV PUSH (17:30)
[2023-02-10] MEDS: dexmedeTOMIDine 400 MCG/100 ML 400 MCG/100 ML BAG IV CONT (17:31)
[2023-02-10] MEDS: SODIUM CHLORIDE 0.9% IV 1,000 ML 100 ML IV CONT (22:00)
[2023-02-11] VITALS (18 sets, daily range): BP systolic 102–141; BP diastolic 42–72; PULSE 51–70; RESP 14–21; TEMP 35.8–37.7; O2SAT 99–100
[2023-02-11] MEDS: dexmedeTOMIDine 400 MCG/100 ML 400 MCG/100 ML BAG 16.86 MCG IV CONT (01:25)
[2023-02-11] MEDS: MINERAL OIL/WHITE PETROLATUM OINTMENT 1 APPLIC EACH EYE (03:08)
[2023-02-11 04:24] LABS: Appearance Urine Turbid (Clear); Bacteria Urine Rare /hpf; Bilirubin Urine Negative (Negative); Blood Urine 1+ (Negative); Color Urine Dark Yellow (Yellow); Glucose Urine UA Negative (Negative); Ketones Urine Negative (Negative); Leukocyte Esterase Ur 1+ LEU/UL (Negative); Mucus Urine Present /lpf; Need Manual Microscopic Reviewed; Nitrate Urine Negative (Negative); Non Pathogenic Casts >20; Protein Urine Trace mg/dL (Negative); Specific Grav Ur 1.021 (1.001-1.035); Squamous Epithelial Cell Urine Few /hpf (Few)
[2023-02-11 04:25] LABS: Add Urine Microscopic? YES
[2023-02-11 04:55] LABS: Basophils Absolute Auto 0.1 K/mm3 (0.0-0.1); Basophils Percent Auto 0.4 % (0.2-1.2); Eosinophils Absolute Auto 0.1 K/mm3 (0-0.3); Eosinophils Percent Auto 0.9 % (0-4.4); Hematocrit 39.2 % (42.0-52.0); Hemoglobin 12.6 g/dL (14.0-18.0); Immature Granulocyte Absolute 0.08 K/mm3 (0.00-0.031); Immature Granulocyte Percent A 0.7 % (0-0.5); Lymphocytes Absolute Auto 2.49 K/mm3 (0.9-3.2); Lymphocytes Percent Auto 21.4 % (18.3-44.2); Mean Corpuscular HGB Conc 32.1 g/dl (32-36); Mean Corpuscular Hemoglobin 30.7 pg (26-34); Mean Corpuscular Volume 95.4 fl (80-100); Mean Platelet Volume 10.1 fl (7.4-10.4); Monocytes Absolute Auto 0.8 K/mm3 (0.1-0.6); Monocytes Percent Auto 6.4 % (2.6-8.5); Neutrophils Absolute Auto 8.2 K/mm3 (1.3-6.7); Neutrophils Percent Auto 70.2 % (45.5-73.1); Platelet Count Result 169 k/mm3 (150-375); Red Blood Count 4.11 M/mm3 (4.6-6.20); Red Cell Distribution Width 13.4 % (11.5-14.5); White Blood Count 11.7 K/mm3 (4.5-10.0)
[2023-02-11] MEDS: dexmedeTOMIDine 400 MCG/100 ML 400 MCG/100 ML BAG 9.84 MCG IV CONT (05:02)
[2023-02-11 05:04] LABS: Ammonia 13 umol/L (9-30)
[2023-02-11 05:36] LABS: Alanine Aminotransferase 16 U/L (6-50); Alkaline Phosphatase 79 U/L (38-126); Anion Gap 7 mmol/L (8-16); Aspartate Amino Transferase 40 U/L (17-59); Bilirubin,Total 1.1 mg/dL (0.2-1.3); Blood Urea Nitrogen 19 mg/dL (9-20); CRP 1.4 mg/dL (<1.0); Calcium 8.7 mg/dL (8.4-10.2); Carbon Dioxide 19 mmol/L (22-30); Chloride 105 mmol/L (98-107); Creatine Kinase 1033 U/L (55-170); Estimated CRCL calculation 46 ml/min; Estimated Glomerular Filt Rate > 60; Glucose 120 mg/dL (65-110); Magnesium 2.2 mg/dL (1.6-2.3); Potassium 4.3 mmol/L (3.4-5.0); Sodium 131 mmol/L (137-145)
[2023-02-11 05:40] LABS: Anisocytosis 1+ (NORMAL); Platelet Estimate Adequate (Adequate); Schistocytes None Seen (NORMAL)
[2023-02-11] MEDS: LACTATED RINGERS 1,000 ML 999 ML IV CONT (07:57)
--- NOTE | 2023-02-11 08:33 | WPDNEURCNPN ---
Assessment and Plan Assessment and plan (1) Breakthrough seizure: Code(s): G40.919 - Epilepsy, unspecified, intractable, without status epilepticus Status: Acute (2) Altered mental status: Qualifiers: Altered mental status type: disorientation Qualified Code(s): R41.0 - Disorientation, unspecified Code(s): R41.82 - Altered mental status, unspecified Status: Acute Plan Patient with a history of epilepsy presenting due to breakthrough seizure. Reportedly patient has been compliant with his seizure medication, although having side-effects of headache and dizziness. He is receiving Lacosamide and Keppra during admission. - Discontinue Lacosamide - Start Trileptal 150mg BID x 1 week, then increase to 300mg BID. Check sodium level after two weeks of goal dose (300mg BID) - Discontinue Keppra on discharge -- patient did not tolerate - Patient should not be driving until he is seizure free for at least 6 months Consult date: 02/11/23 Reason for consult: Breakthrough seizure HPI: Jorje Martell is a 57 year old male with a history of chronic alcohol use, seizure, depression presenting due to breakthrough seizure. Patient had his first seizure in April of 2022. His FARNAZ brain showed old left lacunar infarct but no source for seizure. Routine EEG showed sharply contoured waveforms in the right temporal region. He was started on Keppra, however about a month afterwards he was switched to Lacosamide. He is currently on Lacosamide 100mg BID. Per chart review, patient has been mostly compliant with the medication, however, it tends to make him tired. On day of admission, patient's family found him having a seizure which aborted after 1 minute, although it is unclear how long he had been seizing prior to their arrival. He was post-ictal afterwards as well as in the ER. He had another seizure in the ER that lasted about 1 minute. Lab work was grossly unrevealing. His UDS was positive fir cannabinoids. CT head did not show any acute changes. He received 3g loading dose of Keppra, 1mg Ativan, and 5mg Versed. He was subsequently admitted. Due to agitation, he required precedex drip, which required him to be admitted to the ICU. Patient's mother is at bedside. She reports that as far as she knows, patient had been compliance with the medication. However, the Lacosamide was causing him to have headaches and dizziness. He also did not tolerate the Keppra prior to that. Review of Systems Review of Systems: ROS unobtainable: Yes unobtainable due to mental status PMFSH Past Medical History Medical History Depression Seizure Tobacco abuse Social History Social History Social History: Surrogate medical decision maker: Poppy Gama, spouse. Code status: Full code. Smoking packs per day: 1 Smoking cigarettes per day: 20.0 Years smoked: 40 Smoking pack-years: 40.00 Smoking status: Heavy tobacco smoker Tobacco type: cigarettes Second hand tobacco smoke exposure: No Alcohol intake: current Alcohol use details: Drank heavily prior to April 2022. Now drinks perhaps 5 beers a month. Substance use: current Substance use type: marijuana Last use: 04/06/22 Lack of Transportation: No Lack of Food: Never True Current Housing: I Have Housing Concerned About Future Housing: No Difficulty Paying Gas/Electric Bills: No Difficulty Paying for Meds: No Currently Unemployed: No Education: High School Diploma/GED Difficulty w/ Childcare or Family Care: No Spiritual care concerns: No Meds Home Medications and Allergies Home Medications Medication Instructions Recorded Confirmed Type lacosamide 100 mg tablet 100 mg PO BID 02/10/23 02/10/23 History Allergies Allergy/AdvReac Type Severity Reaction Status Date / Time No Known Allergies Allergy Unverified 11/29/15 1
[2023-02-11] MEDS: SODIUM CHLORIDE 0.9% IV 1,000 ML 100 ML IV CONT ×2 (10:15→19:11)
--- NOTE | 2023-02-11 10:46 | WPDNEUROLOGY ---
Neurology EEG Report General Information Date of Study: 02/11/23 TEST Routine EEG DIAGNOSIS Status epilepticus CONDITION OF RECORDING Sedated (on Precedex) EEG NUMBER [id number] CLINICAL HISTORY Patient has a history of epilepsy. Presented due to multiple breakthrough seizures on day of admission. Became quite agitated afterwards so currently admitted to ICU on Precedex infusion. EEG DESCRIPTION The recording is continuous. There is no well-defined posterior dominant rhythm. There is no well-defined anterior-posterior gradient. The background consists of mostly delta-theta range rhythm, with occasional alpha frequency waves. There are no significant asymmetries of the background. No epileptiform discharges or electrographic seizures are noted. Normal sleep architecture is not observed. Activation procedures were not performed due to patient's clinical status. IMPRESSION This is an abnormal routine EEG due to the presence of diffuse slowing of the background. This finding can be seen in the setting of encephalopathy. No epileptiform features or electrographic seizures were observed. Clinical correlation recommended.
[2023-02-11] MEDS: ENOXAPARIN 40 MG/0.4 ML SYRINGE SUB-Q (11:39)
--- NOTE | 2023-02-11 14:24 | WPDCNINT ---
Assessment and Plan Assessment and plan (1) Breakthrough seizure: Code(s): G40.919 - Epilepsy, unspecified, intractable, without status epilepticus Status: Acute Assessment and Plan: Patient presented with breakthrough seizures, has been on lacosamide at home -patient was loaded with Keppra 3 g IV x1 in the ER -currently on Keppra 1.5 g q.12 hours IV -appreciate Neurology evaluation and recommendations -lacosamide will be discontinued neurology and will start Trileptal -02/11 EEG: This is an abnormal routine EEG due to the presence of diffuse slowing of the background. This finding can be seen in the setting of encephalopathy. No epileptiform features or electrographic seizures were observed. Clinical correlation recommended. (2) Altered mental status: Qualifiers: Altered mental status type: disorientation Qualified Code(s): R41.0 - Disorientation, unspecified Code(s): R41.82 - Altered mental status, unspecified Status: Acute Assessment and Plan: Patient was agitated after a seizures likely postictal requiring Precedex infusion -have asked the bedside RN to wean Precedex infusion to off -continue to monitor patient in the ICU (3) Tobacco abuse: Code(s): Z72.0 - Tobacco use Status: Acute Assessment and Plan: Will corrections counselor patient for tobacco cessation once he is more awake (4) Leukocytosis: Qualifiers: Leukocytosis type: unspecified Qualified Code(s): D72.829 - Elevated white blood cell count, unspecified Code(s): D72.829 - Elevated white blood cell count, unspecified Status: Acute Assessment and Plan: Leukocytosis likely related to stress related from seizure activity -WBC count trending down, will continue to monitor -patient given additional IV fluid bolus this morning Plan DVT prophylaxis: Enoxaparin Stress ulcer prophylaxis: Not indicated Nutrition: NPO for not Magaly more awake Code Status: Full code Critical Care Time Spent: 47 minutes Discussed with patient's mother at bedside Due to a high probability of clinically significant, life threatening deterioration, the patient required my highest level of preparedness to intervene emergently and I personally spent this critical care time directly and personally managing the patient. This critical care time included obtaining a history; examining the patient; pulse oximetry; ordering and review of studies; arranging urgent treatment with development of a management plan; evaluation of patient's response to treatment; frequent reassessment; and discussions with other providers. It was exclusive of separately billable procedures and treating other patients and teaching time. Please see Assessment and Plan section and the rest of the note for further information on patient assessment and treatment This dictation may have been done utilizing a voice recognition system. Attempts have been made to correct errors. However, there may be uncorrected grammatical, spelling, and recognitions errors present. [employer] Caster Consult Note Consult date: 02/11/23 Reason for consult: Seizures, encephalopathy, agitation HPI: Jorje Martell is a 57 year old male with past medical history of depression, tobacco abuse, seizures with 1st started in April of 2022, at that time MRI showed old lacunar infarct but no source source seizures. He was started on Keppra however month afterward he was switched to lacosamide. Patient has mostly been compliant with his medication however it makes him tired. On the day of admission patient's family found him having a seizure which aborted after 1 minute, although it was unclear how long he had been seizing prior to the arrival. Patient also had a seizure that lasted about 1 minute in the ER, there after he was postictal. Patient was loaded with 3 g of Keppra IV, 1 g of Ativan and 5 mg Versed. He was subsequently transferred to the ICU for further management.
[2023-02-11] MEDS: OXcarbazepine 150 MG TABLET PO (18:21)
[2023-02-12] VITALS (9 sets, daily range): BP systolic 96–154; BP diastolic 41–68; PULSE 56–82; RESP 16–24; TEMP 36.2–38.2; O2SAT 97–100
[2023-02-12 04:50] LABS: Basophils Absolute Auto 0.1 K/mm3 (0.0-0.1); Basophils Percent Auto 0.5 % (0.2-1.2); Eosinophils Absolute Auto 0.1 K/mm3 (0-0.3); Eosinophils Percent Auto 0.8 % (0-4.4); Hematocrit 37.7 % (42.0-52.0); Immature Granulocyte Absolute 0.05 K/mm3 (0.00-0.031); Immature Granulocyte Percent A 0.4 % (0-0.5); Lymphocytes Absolute Auto 2.16 K/mm3 (0.9-3.2); Lymphocytes Percent Auto 18.5 % (18.3-44.2); Mean Corpuscular HGB Conc 31.8 g/dl (32-36); Mean Corpuscular Hemoglobin 30.3 pg (26-34); Mean Corpuscular Volume 95.2 fl (80-100); Mean Platelet Volume 9.6 fl (7.4-10.4); Monocytes Absolute Auto 0.8 K/mm3 (0.1-0.6); Monocytes Percent Auto 7.2 % (2.6-8.5); Neutrophils Absolute Auto 8.5 K/mm3 (1.3-6.7); Neutrophils Percent Auto 72.6 % (45.5-73.1); Platelet Count Result 204 k/mm3 (150-375); Red Blood Count 3.96 M/mm3 (4.6-6.20); Red Cell Distribution Width 13.6 % (11.5-14.5); White Blood Count 11.7 K/mm3 (4.5-10.0)
[2023-02-12 05:00] LABS: Lactic Acid Reflex 0.7 mmol/L (0.7-2.0)
[2023-02-12 05:03] LABS: Alanine Aminotransferase 15 U/L (6-50); Albumin Level 3.3 g/dL (3.5-5.1); Alkaline Phosphatase 78 U/L (38-126); Anion Gap 8 mmol/L (8-16); Aspartate Amino Transferase 36 U/L (17-59); Bilirubin,Total 0.9 mg/dL (0.2-1.3); Blood Urea Nitrogen 18 mg/dL (9-20); CRP 4.4 mg/dL (<1.0); Calcium 8.2 mg/dL (8.4-10.2); Carbon Dioxide 16 mmol/L (22-30); Chloride 110 mmol/L (98-107); Creatine Kinase 677 U/L (55-170); Estimated CRCL calculation 43 ml/min; Estimated Glomerular Filt Rate 57; Glucose 60 mg/dL (65-110); Magnesium 1.8 mg/dL (1.6-2.3); Phosphorus 2.6 mg/dL (2.5-4.5); Sodium 134 mmol/L (137-145)
[2023-02-12] MEDS: DEXTROSE 50% 25 GM/50 ML SYRINGE IV PUSH (05:10)
[2023-02-12] MEDS: SODIUM CHLORIDE 0.9% IV 1,000 ML 100 ML IV CONT (05:15)
[2023-02-12 06:17] LABS: Glucose Point of Care 128 mg/dl (65-105)
[2023-02-12] MEDS: ENOXAPARIN 40 MG/0.4 ML SYRINGE SUB-Q (08:34)
[2023-02-12] MEDS: OXcarbazepine 150 MG TABLET PO ×2 (08:34→20:46)
--- NOTE | 2023-02-12 11:47 | PCFNICU ---
ICU Rounding Note: Pt current nutrition is Regular. Last recorded weight is 54.2 kg, stable Bowel Motility:No BM reported at this time. Labs Reviewed:Glu 60, GFR 57, Na 134, Alb 3.3 Meds Noted:Remy Kline Skin: WNL Additional Notes: Patient diet order has been advanced to a regular diet. Tolerating diet. No further nutritional interventions needed. Following daily in ICU rounds and reassessing every 7 days.
--- NOTE | 2023-02-12 13:42 | WPDINTPN ---
Progress Note: A&P Assessment and Plan (1) Breakthrough seizure: Code(s): G40.919 - Epilepsy, unspecified, intractable, without status epilepticus Status: Acute Assessment and Plan: Patient presented with breakthrough seizures, has been on lacosamide at home -patient was loaded with Keppra 3 g IV x1 in the ER -currently on Keppra 1.5 g q.12 hours IV -appreciate Neurology evaluation and recommendations -02/11: lacosamide will be discontinued neurology and will start Trileptal -02/11 EEG: This is an abnormal routine EEG due to the presence of diffuse slowing of the background. This finding can be seen in the setting of encephalopathy. No epileptiform features or electrographic seizures were observed. Clinical correlation recommended. (2) Altered mental status: Qualifiers: Altered mental status type: disorientation Qualified Code(s): R41.0 - Disorientation, unspecified Code(s): R41.82 - Altered mental status, unspecified Status: Acute Assessment and Plan: Patient was agitated after a seizures likely postictal requiring Precedex infusion - off Precedex infusion since 02/11 - altered mental status has resolved, likely postictal (3) Tobacco abuse: Code(s): Z72.0 - Tobacco use Status: Acute Assessment and Plan: counseled patient on tobacco cessation, he said he is going to think about it (4) Leukocytosis: Qualifiers: Leukocytosis type: unspecified Qualified Code(s): D72.829 - Elevated white blood cell count, unspecified Code(s): D72.829 - Elevated white blood cell count, unspecified Status: Acute Assessment and Plan: Leukocytosis likely related to stress related from seizure activity -WBC count trending down, will continue to monitor Plan DVT prophylaxis: Enoxaparin Stress ulcer prophylaxis: Not indicated Nutrition: regular diet Code Status: Full code Critical Care Time Spent: 32 minutes okay to move patient out of the ICU Due to a high probability of clinically significant, life threatening deterioration, the patient required my highest level of preparedness to intervene emergently and I personally spent this critical care time directly and personally managing the patient. This critical care time included obtaining a history; examining the patient; pulse oximetry; ordering and review of studies; arranging urgent treatment with development of a management plan; evaluation of patient's response to treatment; frequent reassessment; and discussions with other providers. It was exclusive of separately billable procedures and treating other patients and teaching time. Please see Assessment and Plan section and the rest of the note for further information on patient assessment and treatment This dictation may have been done utilizing a voice recognition system. Attempts have been made to correct errors. However, there may be uncorrected grammatical, spelling, and recognitions errors present. Subjective Date/time seen: 02/12/23 13:42 Interval history: Reason for consult: Seizures, encephalopathy, agitation 02/12/2023: Patient seen and examined the ICU, is awake, alert, oriented x3. Denies any shortness of breath, chest pain, abdominal pain, nausea vomiting at this time. Patient has had no seizures since being admitted to the ICU. adequate urine output, hemodynamically stable, on room air with good O2 sats. off Precedex infusion since yesterday Review of Systems Review of Systems: All systems reviewed & are unremarkable except as noted in HPI and below Exam Narrative: General: patient is awake, pleasant, in no acute distress HEENT:? Pupils are equal and reactive, sclerae is clear, moist oral mucosa Neck:? Supple Respiratory:? Clear to auscultation bilaterally, no wheezing, adequate air entry Cardiac:? Sinus bradycardia, S1-S2 was normal Abdomen:? Soft, nontender, nondistended, normoactive bowel sounds Extremit
--- NOTE | 2023-02-12 14:20 | PC.NURSE ---
This patient, Jorje Martell, was transferred to [[id number]] on 02/12/23 at 1420. Personal belongings sent with patient. Report given to [LUCY Barajas @ 1410]. Appropriate documentation sent with patient. Poppy Adamsandri, , notified of move
--- NOTE | 2023-02-12 14:52 | PC.NURSE ---
This patient, Jorje Martell, was received from [facility] on 02/12/23 at 1430 . Patient/family oriented to unit policies and routines
[2023-02-12] MEDS: MAG HYDROX/AL HYDROX/SIMETH 30 ML UDC PO (22:59)
[2023-02-12] MEDS: ONDANSETRON INJ 4 MG/2 ML VIAL IV PUSH (23:00)
[2023-02-12] MEDS: ACETAMINOPHEN 325 MG TABLET PO (23:00)
[2023-02-13 06:00] VITALS: BP 133/58; PULSE 71; RESP 12; TEMP 36.3; O2SAT 94
[2023-02-13] MEDS: OXcarbazepine 150 MG TABLET PO (08:29)
[2023-02-13] MEDS: ENOXAPARIN 40 MG/0.4 ML SYRINGE SUB-Q (08:30)
[2023-02-13 14:00] VITALS: BP 102/68; PULSE 72; RESP 18; TEMP 36.2; O2SAT 99
--- NOTE | 2023-02-13 15:13 | PM.DS ---
DS: Admitting Diagnosis Discharge Date 02/13/2023 Admitting Diagnosis Seizures Acute encephalopathy DS: Discharge Diagnosis Discharge Diagnosis (1) Breakthrough seizure: Code(s): G40.919 - Epilepsy, unspecified, intractable, without status epilepticus Status: Acute Assessment and Plan: Patient presented with breakthrough seizures, has been on lacosamide at home -patient was loaded with Keppra 3 g IV x1 in the ER -currently on Keppra 1.5 g q.12 hours IV -appreciate Neurology evaluation and recommendations -02/11: lacosamide will be discontinued neurology and will start Trileptal -02/11 EEG: This is an abnormal routine EEG due to the presence of diffuse slowing of the background. This finding can be seen in the setting of encephalopathy. No epileptiform features or electrographic seizures were observed. Clinical correlation recommended. 02/13/2023: per Neurology: - Discontinue Lacosamide - Start Trileptal 150mg BID x 1 week, then increase to 300mg BID. Check sodium level after two weeks of goal dose (300mg BID) - Discontinue Keppra on discharge -- patient did not tolerate - Patient should not be driving until he is seizure free for at least 6 months (2) Altered mental status: Qualifiers: Altered mental status type: disorientation Qualified Code(s): R41.0 - Disorientation, unspecified Code(s): R41.82 - Altered mental status, unspecified Status: Acute Assessment and Plan: Patient was agitated after a seizures likely postictal requiring Precedex infusion - off Precedex infusion since 02/11 - altered mental status has resolved, likely postictal 02/13/2023: Improved mentation (3) Tobacco abuse: Code(s): Z72.0 - Tobacco use Status: Acute Assessment and Plan: counseled patient on tobacco cessation, he said he is going to think about it 3 minutes counseling (4) Leukocytosis: Qualifiers: Leukocytosis type: unspecified Qualified Code(s): D72.829 - Elevated white blood cell count, unspecified Code(s): D72.829 - Elevated white blood cell count, unspecified Status: Acute Assessment and Plan: Leukocytosis likely related to stress related from seizure activity -WBC count trending down, will continue to monitor Plan DVT prophylaxis: Enoxaparin Stress ulcer prophylaxis: Not indicated Nutrition: regular diet Code Status: Full code Critical Care Time Spent: 32 minutes okay to move patient out of the ICU Due to a high probability of clinically significant, life threatening deterioration, the patient required my highest level of preparedness to intervene emergently and I personally spent this critical care time directly and personally managing the patient. This critical care time included obtaining a history; examining the patient; pulse oximetry; ordering and review of studies; arranging urgent treatment with development of a management plan; evaluation of patient's response to treatment; frequent reassessment; and discussions with other providers. It was exclusive of separately billable procedures and treating other patients and teaching time. Please see Assessment and Plan section and the rest of the note for further information on patient assessment and treatment This dictation may have been done utilizing a voice recognition system. Attempts have been made to correct errors. However, there may be uncorrected grammatical, spelling, and recognitions errors present. DS: Summary Hospital Course Reason for hospitalization: Acute encephalopathy; Post-Seizures Hospital Course: his is a 57-year-old male with history of seizures as of April 2022 and depression who presented to the emergency department via EMS for evaluation of a seizure. The patient remains postictal and a majority of the following history is obtained via a review of his chart as well as information provided by family members. He was hospitalized at the beginning of the y
== END 2023-02-13 16:40 | disposition home or self-care (01) | DRG 101 ==
LOC: ANHED 13:48 → ANHICU 17:20 → ANH3MEDSUR 02-13 15:18 → ANHICU 02-14 15:18
PROVIDERS: Internal Medicine; Physician Assistant; Admitting Provider Internal Medicine; Emergency Provider Student in an Organized Health Care Education/Training Program; Visit Provider Internal Medicine
DX: G40.919 Epilepsy, unspecified, intractable, without status epilepticus (principal); E87.1 Hypo-osmolality and hyponatremia; D72.829 Elevated white blood cell count, unspecified; F17.210 Nicotine dependence, cigarettes, uncomplicated; R41.82 Altered mental status, unspecified; Z86.73 Personal history of transient ischemic attack (TIA), and cerebral infarction without residual deficits; Z28.21 Immunization not carried out because of patient refusal
CPT/HCPCS: 36415; 70450; 71045; 80053; 80307; 81001; 82140; 82550; 82607; 82948; 83605; 83735; 84100; 84443; 85025; 85055; 86140; 87086; 95816; 96365; 96372; 96375; 97161; 97165; 99285; A9270; J1650; J1953; J2060; J2250; J2405; J7030; J7120

== ENCOUNTER 2024-12-31 12:24 | Emergency (ER) | payer OTHER, SELFPAY ==
--- OUTSIDE RECORDS SUMMARY | 2004-10-04 19:00 | XMS_ITS | Continuity of Care Document ---
Author Organization [facility] Address [address] [place] [address] Phone Care Team Providers Care Manager Test Name Role Phone Sandro Zhong MD Unavailable Unavailable Results Test Name Date and Time Measure Units Reference Range Abnormal Flag Status Comments Panel Description: TSH Unknown TSH 00:00:00 0.61 uIU/ml Unknown Panel Description: Glucose Unknown Glucose- 00:00:00 119 mg/dL H Unknown Advance Directives Directive Yes / No Effective Date File Name No Information Encounters Encounter Description Practice Location Reason(s) For Visit Diagnoses Date Provider Providers Copied on Encounter [facility], [address], [place], [place], [id number] , tel: [phone] [facility] [address], [place], [place], [id number] , [place]. tel: [phone] [facility], [address], [place], [place], [id number] , tel: [phone] [facility]LDER [address], [place], [place], [id number] , [place]. tel: [phone] Family History Family Member Type Diagnosis Age At Onset No Information Payers Payer name Insurance type Covered constitution party ID Authoriza tion(s) No Information Social History Type Description Quantity Date Captured Comments Sex Male Smoking Status No Information Chief Complaint And Reason For Visit No Information Reason For Referral Reason For Referral No Information History Of Present Illness Encounter Date Complaint History Of Prese nt Illness No Information Functional Status Date Functional Assessmen t No Information Instructions Date Instruction Additional Infor mation No Information Assessments Type Assessment Date No Information Patient Care Teams Name Effective Dates (start - stop) Status Members No Information
[2024-12-31] VITALS (35 sets, daily range): BP systolic 84–157; BP diastolic 73–125; PULSE 127–145; RESP 14–42; TEMP 32.3–36.7; O2SAT 82–100
--- NOTE | ~2024-12-31 | XR_ITS ---
EXAMINATION: XR abdomen gastric tube insert, 12/31/2024 13:42 CDT HISTORY: OG PLACEMENT COMPARISON: No comparisons available. Technique: 3 view. Findings: Bowel gas pattern unremarkable. No obstruction. No free air. No abnormal calcifications No acute osseous abnormality. Nasogastric tube terminates in the stomach Impression: 1. No acute abnormality. Reviewed, dictated and finalized at location P. Impression: 1. No acute abnormality.
--- NOTE | ~2024-12-31 | XR_ITS ---
Examination: XR chest ET placement Clinical History: ET PLACEMENT AND CENTRAL LINE PLACEMENT Comparison: CTA chest same day Technique: Portable AP Findings: ET tube, NG tube with tip in gastric fundus, left subclavian central line. Heart size normal. Emphysema. Right upper lobe opacity better seen on CT. No acute bony abnormality. IMPRESSION: 1. Support devices well positioned. 2. No acute cardiopulmonary findings given portable technique. Reviewed, dictated and finalized at location R.
--- NOTE | ~2024-12-31 | CT_ITS ---
EXAMINATION: CTA chest DATE: 12/31/2024 13:34 CDT INDICATION: Aortogram TECHNIQUE: Computed tomographic angiography (CTA) of the chest was performed with 100 mL Omnipaque-350 intravenous contrast. The dose-length product was 0.00 mGy-cm. Maximum intensity projection 3D-reconstructions of the aorta and other arteries were constructed by the technologist on a separate workstation. COMPARISON: None. FINDINGS: Heart size normal. Aorta is normal caliber without evidence for aneurysm or dissection. The infrarenal abdominal aorta is occluded. No large central pulmonary embolism. No significant pleural or pericardial effusion. Severe emphysema. There is an oval shaped mass in the right upper lobe measuring 3 x 1.1 cm. No pneumothorax. Left lung clear. No endobronchial lesions. No thoracic lymphadenopathy. IMPRESSION: 1. Occlusion of the infrarenal abdominal aorta. 2: Right upper lobe mass measuring 3 x 1.1 cm, suspicious for bronchogenic carcinoma. 3: Severe bullous emphysema. Dr. Poli Rojas discussed with Dr. Mode MD at 12/31/2024 13:50 CDT. Reviewed, dictated and finalized at location O. IMPRESSION: 1. Occlusion of the infrarenal abdominal aorta. 2: Right upper lobe mass measuring 3 x 1.1 cm, suspicious for bronchogenic car cinoma. 3: Severe bullous emphysema. Dr. Poli Rojas discussed with Dr. Mode MD at 12/31/2024 13:50 CDT.
--- NOTE | ~2024-12-31 | CT_ITS ---
EXAMINATION: CTA abd aorta runoff DATE: 12/31/2024 13:07 INDICATION: Lower abdominal pain. Unable to obtain Doppler pulse in the lower extremities TECHNIQUE: Computed tomographic angiography (CTA) of the chest, abdominal, pelvis, and both lower extremities was performed with 108 mL Omnipaque 350 intravenous contrast. Automated exposure control and iterative reconstruction technique were employed. The dose-length product was 660.82 mGy-cm. COMPARISON: None. FINDINGS: THORACIC AORTA AND ITS BRANCHES: Thoracic aorta is normal in caliber with no dissection or hematemesis can stenosis. There is minimal nonhemodynamically significant atherosclerotic plaque at the innominate artery and proximal right subclavian artery. The bilateral common carotid arteries are normal in caliber with no hemodynamically s ignificant stenosis. There is a 60% stenosis at the proximal left subclavian artery which arises proximal to the takeoff of the left vertebral artery. There is ABDOMINAL AORTA AND ITS BRANCHES: There is complete occlusion of the abdominal aorta occurring immediately distal to the takeoff of the bilateral renal arteries. Mild stenosis at the origin of the superior mesenteric artery. The celiac axis and its branches as well as the bilateral renal arteries are patent. The inferior mesenteric artery is not identified. PELVIC VASCULATURE: The bilateral common, external and internal iliac arteries all small in caliber and thrombosed. There is reconstitution of flow to the bilateral common femoral arteries via likely retrograde collateral flow from the bilateral hypogastric arteries. RIGHT LOWER EXTREMITY: The arteries throughout the right lower limb are small likely secondary to the occluded abdominal aorta and limited flow provided by the collateral resupply. There is small amount scattered atherosclerotic plaque along the distal femoral and proximal popliteal artery. The arteries at the right calf are atretic with contrast in the anterior tibial artery becoming indiscernible at the level of the mid calf and in the peroneal artery at the distal calf. There is runoff below the ankle in the right posterior tibial artery. LEFT LOWER EXTREMITY: The arteries throughout the left lower limb are small likely secondary to the occluded abdominal aorta and limited flow provided by the collateral resupply. There is small amount scattered atherosclerotic plaque along the distal femoral and proximal popliteal artery. The arteries at the left calf are atretic with contrast in the anterior tibial and peroneal arteries becoming indiscernible at the level of the distal calf. There is runoff to the level of the ankle in the left posterior tibial artery with no discernible contrast evident within the more distal arteries at the left foot. ADDITIONAL FINDINGS: Moderate paraseptal predominant emphysema at the periphery of the bilateral mid to upper lung zones. There are some respiratory motion throughout both lungs. Biapical pleural-parenchymal scarring with band of discoid atelectasis extending more caudally along the anterior lateral right upper lobe. No suspicious pulmonary nodules, pneumonia, pulmonary edema or pleural effusion. Heart size is normal. No pathologically enlarged thoracic lymphadenopathy. Mild thoracic spondylosis. Liver, gallbladder, spleen, bilateral adrenal glands and kidneys are normal. There small region of cortical scarring at both kidneys consistent with sequela of chronic infection or infarction. There multiple diverticula along the sigmoid colon without adjacent from trace stranding to suggest diverticulitis. Small bowel and appendix are normal. There is relatively uniform mucosal enhancement throughout the bowels. Bladder is normal. Mild prostatomegaly measuring 3.8 x 3.3 cm. No free intraperitoneal gas or fluid. No pathologically enlarged abdominal or pelvic lymphadenopathy. Moderate to severe lumbar spondylosis. IMPRESSION: 1. Complete occlusion of the infrarenal abdominal aorta with reconstitution of a small amount of flow via collaterals at the bilateral common femoral arteries. Dr. Mcintyre discussed these findings with Dr. Coon at 1:02 PM. 2. The arteries throughout both the left and right lower extremities are small likely due to flow limitation resulting from the aortic occlusion and limited collateral resupply via the bilateral hypogastric arteries. 3. 60% stenosis at the proximal left subclavian artery. 4. No acute cardiopulmonary disease or nonvascular acute intra-abdominal/pelvic process. Reviewed, dictated and finalized at location A. IMPRESSION: 1. Complete occlusion of the infrarenal abdominal aorta with reconstitution of a small amount of flow via collaterals at the bilateral common femoral arterie s. Dr. Mcintyre discussed these findings with Dr. Coon at 1:02 PM. 2. The arteries throughout both the left and right lower extremities are small likely due to flow limitation resulting from the aortic occlusion and limited c ollateral resupply via the bilateral hypogastric arteries. 3. 60% stenosis at the proximal left subclavian artery. 4. No acute cardiopulmonary disease or nonvascular acute intra-abdominal/pelvic process.
--- NOTE | 2024-12-31 12:31 | ECG_ITS ---
Test Date: 2024-12-31 12:32:21 Measurements Intervals [place] Rate: 140 P: 0 GA: 0 QRS: -77 QRSD: 110 T: 89 QT: 322 QTc: 493 Interpretive Statements SUPRAVENTRICULAR TACHYCARDIA POSSIBLE RIGHT VENTRICULAR CONDUCTION DELAY [RSR (QR) IN V1/V2] LEFT ANTERIOR FASCICULAR BLOCK [QRS AXIS <= -45, QR IN I, RS IN II] ANTEROLATERAL MYOCARDIAL INFARCTION , PROBABLY RECENT [40+ ms Q WAVE IN I/aVL/V3-V6] ACUTE [place] No previous ECG available for comparison Electronically Signed On 12-31-2024 15:25:02 CDT by Faisal Mcqueen M.D.
[2024-12-31] MEDS: HYDROmorphone HCL INJ (*CRX) 1 MG/ML SYR 0.5 MG IV PUSH (12:40)
[2024-12-31 12:42] LABS: Hematocrit 43.5 % (42.0-52.0); Hemoglobin 13.6 g/dL (14.0-18.0); Immature Granulocyte Percent A 1.7 % (0-0.5); Lymphocytes Absolute Auto 3.75 K/mm3 (0.9-3.2); Mean Corpuscular HGB Conc 31.3 g/dl (32-36); Mean Corpuscular Hemoglobin 29.9 pg (26-34); Mean Corpuscular Volume 95.6 fl (80-100); Nucleated Red Blood Cells Absolute Auto 0.000 K/mm3 (0.0-0.012); Nucleated Red Blood Cells Perc 0.0 % (0.0-0.2); Platelet Count Result 319 k/mm3 (150-375); Red Blood Count 4.55 M/mm3 (4.6-6.20); White Blood Count 15.0 K/mm3 (4.5-10.0)
[2024-12-31 12:52] LABS: Alanine Aminotransferase 31 U/L (6-50); Albumin Level 4.7 g/dL (3.5-5.1); Alkaline Phosphatase 130 U/L (38-126); Aspartate Amino Transferase 39 U/L (17-59); Bilirubin,Total 1.1 mg/dL (0.2-1.3); Blood Urea Nitrogen 16 mg/dL (9-20); Calcium 10.0 mg/dL (8.4-10.2); Carbon Dioxide < 5 mmol/L (22-30); Chloride 99 mmol/L (98-107); Estimated Glomerular Filt Rate 39; Glucose 132 mg/dL (65-110); Potassium 4.2 mmol/L (3.4-5.0); Sodium 134 mmol/L (137-145); Total Protein 8.5 g/dL (6.3-8.2)
[2024-12-31] MEDS: HYDROmorphone HCL INJ (*CRX) 1 MG/ML SYR IV PUSH (13:13)
[2024-12-31 13:18] LABS: INR 1.2; Prothrombin Time 14.9 Seconds (11.1-14.7)
[2024-12-31 13:19] LABS: Partial Thromboplastin Time 47.5 Seconds (22.3-36.8)
--- NOTE | 2024-12-31 13:19 | PC.NURSE ---
13:[address] RT and MD in room. Patient given Dilaudid for pain via PIV. 13:19 15 mg of Etomidate given via PIV per MD orders. 13:20 75mg of Rocuronium given via PIV per MD orders. MD placed 7.5 ET Tube, color change. OGT placed at 68 at the lip. 13:30 Glynn catheter with temp control placed. RN placed temp control to monitor. 13:40 MD placed Central line in left subclavian. 13:50 Arterial line placed by MD. Arterial line zeroed and connected to monitor by RN.
[2024-12-31 13:29] LABS: Troponin I 0.053 ng/mL (0.000-0.034)
[2024-12-31] MEDS: LACTATED RINGERS 1,000 ML 999 ML IV CONT ×2 (13:30→14:42)
[2024-12-31] MEDS: NOREPINEPHRINE 8 MG/D5W 250 ML 8 MG/250 ML BAG 9.38 MG IV CONT (13:30)
[2024-12-31 13:36] LABS: Magnesium 2.6 mg/dL (1.6-2.3)
[2024-12-31 13:44] LABS: NT Pro B Type Natriuretic Pept 366 pg/mL (19.9-100)
[2024-12-31 14:13] LABS: Alveolar/Arterial O2 Gradient 198.2 mmHg; Fractional Inspired Oxygen 40 %; HCO3 ABG 12.1 mEq/l (22.0-26.0); Oxygen Content ABG 17.2 %vol (16.0-22.0); Oxygen Saturation ABG 98.3 % (95.0-100.0); PCO2 ABG 36.0 mmHg (35.0-45.0); PO2 ABG 148.1 mmHg (80.0-100.0); PO2 FiO2 Ratio Arterial Blood 3.70 %
[2024-12-31 14:16] LABS: Modified Allen's Test Pass; Site Drawn ARTLINE
[2024-12-31 14:17] LABS: Arterial Blood Gas Ventilator rate 16 /MIN
[2024-12-31 14:18] LABS: Arterial Blood Gas Tidal Volume 450 ml
[2024-12-31] MEDS: MIDAZOLAM 100MG/NS 100ML(*CRX) 100 MG/100 ML BAG IV CONT (14:20)
--- NOTE | 2024-12-31 14:21 | ED_ITS ---
HPI - General Adult General Chief complaint: Shortness of Breath/Dyspnea Stated complaint: dyspnea Time Seen by Provider: 12/31/24 12:34 History of Present Illness HPI narrative: This is a 59-year-old male presenting in severe distress. Per EMS they were called for a possible seizure/syncope. When they arrived the patient was complaining of severe leg lower abdominal pain. He was also hypoxic on room air was placed on a non-rebreather. He was then brought to the hospital for evaluation. Patient is writhing around in pain. He cannot provide an organized history other than his legs hurt. Patient had carotid endarterectomy on 12/08 performed at [facility]. Related Data Allergies Allergy/AdvReac Type Severity Reaction Status Date / Time No Known Allergies Allergy Verified 12/31/24 12:39 [facility] Past Medical History Medical History Seizure Tobacco abuse Depression Social History Social History Social History: Surrogate medical decision maker: Poppy Gama, spouse. Code status: Full code. Smoking packs per day: 1 Smoking cigarettes per day: 20.0 Years smoked: 40 Smoking pack-years: 40.00 Smoking status: Heavy tobacco smoker Tobacco type: cigarettes Second hand tobacco smoke exposure: No Alcohol intake: current Alcohol use details: Drank heavily prior to April 2022. Now drinks perhaps 5 beers a month. Substance use: current Substance use type: marijuana Last use: 04/06/22 Lack of Transportation: No Lack of Food: Never True Current Housing: I Have Housing Concerned About Future Housing: No Difficulty Paying Gas/Electric Bills: No Difficulty Paying for Meds: No Currently Unemployed: No Education: High School Diploma/GED Difficulty w/ Childcare or Family Care: No Spiritual care concerns: No Exam 2 Narrative: APPEARANCE: Patient is writhing in the bed and agony. Head: atraumatic. EYES: EOMI, NOSE: Atraumatic NECK: Trachea midline RESPIRATORY: Tachypneic, hypoxic, clear lungs CARDIOVASCULAR: No palpable pulses in the legs, cool to touch, capillary refill delayed ABDOMINAL: Soft nontender MUSCULOSKELETAl: No obvious deformities NEURO: Alert. Unable to wiggle his toes moving upper extremities is normal SKIN:: Legs are cool to touch Course Vital Signs Vital signs: Vital Signs Temperature 98.0 F 12/31/24 12:24 Pulse Rate 142 H 12/31/24 12:24 Respiratory Rate 29 H 12/31/24 12:24 Blood Pressure 132/118 H 12/31/24 12:24 Pulse Oximetry 99 12/31/24 12:24 Oxygen Delivery BiPAP 12/31/24 12:24 Temperature 95.7 F L 12/31/24 13:39 Pulse Rate 144 H 12/31/24 13:39 Respiratory Rate 16 12/31/24 13:39 Blood Pressure 107/93 H 12/31/24 13:39 Pulse Oximetry 95 12/31/24 13:39 Oxygen Delivery Mechanical Ventilation 12/31/24 13:15 Fraction of Inspired Oxygen 40 12/31/24 13:15 Procedures Arterial Line Arterial line #1: Date of Arterial Line: 12/31/24 Arterial Line Location: radial Perfomed Emergently - Given emergent patient conditions, temporal constraints may have precluded informed consent: Yes Time Out Performed: Yes Size (Gauge): 18 Technique Used: guide wire technique Post-Procedure: line sutured into place and dry sterile dressing placed Patient Tolerated Procedure: well Complications: none Central Line Placement Left SC: Central Line Date: 12/31/24 Performed Emergently - Given emergent patient condition, temporal constraints may have precluded informed consent.: Yes Time Out Performed: Yes Patient Placed on Monitor/Pulse Ox: Yes Max. Sterile Barrier Technique: Caps, large sterile sheet and hand hygiene Central Line Prep: 2% chlorhexidine scrub and sterile drapes applied Emergently Placed, Full Sterile: prep not done Technique: sterile prep/drape Ultrasound Used for Placement: No Central Line Lumen Inserted: triple Post Procedure: sutured in place, good blood return, all ports aspirated, flushed, capped and sterile dressing applied Post Procedure X-Ray: tip of catheter in good position and no pneumothorax seen Patient Tolerated Procedure: well Complications: none Medical Decision Making MDM Narrative Medical decision making narrative: -Course: 59-year-old male presenting in severe distress. On exam he does not have palpable pulses in his legs. Patient given pain control taken to the scanner immediately for a CT Aortogram w/ runoff. This showed a an infrarenal occlusion of the aorta. Patient was given fluid resuscitation, pain control and intubated for airway protection. After intubation his blood pressure dropped to 60/40 and he was started on peripheral nor epi. A left subclavian central line was placed without complication. Right radial art line was placed. Patient was started on heparin. Started on broad-spectrum antibiotics. Patient did not know where he had his procedure performed. We reach out to [facility] even for . Performed at [facility]. Recent out to [facility] and they were full capacity and directed us to [facility] was spoke to vascular surgeon Dr. Munguia and ICU physician Dr. Gustafson. Patient has been accepted for transport. Patient will be flown emergently to [facility] for vascular intervention. Family was informed survival is unlikely. -DDX includes but is not limited to: Aortic dissection, aortic occlusion, PE -Co-morbidities complicating care:Vascular disease -Independent interpretation of studies: White count elevated at 15. Hemoglobin within normal limits. Kidney function with creatinine1.8 from baseline of 1.3. Lactic 17.8 Troponin 0.053, likely demand ischemia Imaging reviewed Independent EKG interpretation: Rhythm [sinus], Rate [140], [place] -[normal], [place] -[normal], QRS [narrow], QTC [493l], T waves -[negative for concerning inversions], ST Segments - [Negative for concerning elevations] Final interpretations: Supraventricular tachycardia -Discussion of Management/Consultants:[facility], [facility] transfer line, Dr George Vascular surgeon, Dr. Gustafson, ICU Vital Signs Vital Signs: Vital Signs Temperature 98.0 F 12/31/24 12:24 Pulse Rate 142 H 12/31/24 12:24 Respiratory Rate 29 H 12/31/24 12:24 Blood Pressure 132/118 H 12/31/24 12:24 Pulse Oximetry 99 12/31/24 12:24 Oxygen Delivery BiPAP 12/31/24 12:24 Temperature 95.7 F L 12/31/24 13:39 Pulse Rate 144 H 12/31/24 13:39 Respiratory Rate 16 12/31/24 13:39 Blood Pressure 107/93 H 12/31/24 13:39 Pulse Oximetry 95 12/31/24 13:39 Oxygen Delivery Mechanical Ventilation 12/31/24 13:15 Fraction of Inspired Oxygen 40 12/31/24 13:15 Lab Data 12/31/24 12:35 12/31/24 12:35 Labs: Lab Results 12/31/24 12/31/24 12/31/24 Range/Units 12:34 12:35 12:59 WBC 15.0 H (4.5-10.0) K/mm3 RBC 4.55 L (4.6-6.20) M/mm3 Hgb 13.6 L (14.0-18.0) g/dL Hct 43.5 (42.0-52.0) % MCV 95.6 (80-100) fl MCH 29.9 (26-34) pg MCHC 31.3 L (32-36) g/dl RDW 13.9 (11.5-14.5) % Plt Count 319 D (150-375) k/mm3 MPV 9.2 (7.4-10.4) fl Immature Gran % (Auto) 1.7 H (0-0.5) % Neut % (Auto) 69.2 (45.5-73.1) % Lymph % (Auto) 25.0 (18.3-44.2) % [place] % (Auto) 3.0 (2.6-8.5) % Eos % (Auto) 0.5 (0-4.4) % Baso % (Auto) 0.6 (0.2-1.2) % Lymph # (Auto) 3.75 H (0.9-3.2) K/mm3 [place] # (Auto) 0.5 (0.1-0.6) K/mm3 Eos # (Auto) 0.1 (0-0.3) K/mm3 Baso # (Auto) 0.1 (0.0-0.1) K/mm3 Abs Immat Gran (auto) 0.25 H (0.00-0.031) K/mm3 Absolute Neuts (auto) 10.4 H (1.3-6.7) K/mm3 Absolute Nucleated RBC 0.000 (0.0-0.012) K/mm3 Nucleated RBC % 0.0 (0.0-0.2) % PT 14.9 H (11.1-14.7) Seconds INR 1.2 APTT 47.5 H (22.3-36.8) Seconds Minute Volume Pending Vent Mode Cmv Tidal Volume 450 ml PEEP 5 cmH2O Peak Inspir Pressure Pending Pressure Support Pending Sodium 134 L (137-145) mmol/L Potassium 4.2 (3.4-5.0) mmol/L Chloride 99 (98-107) mmol/L Carbon Dioxide < 5 L (22-30) mmol/L Anion Gap (4-12) mmol/L BUN 16 (9-20) mg/dL Creatinine 1.81 H (0.7-1.3) mg/dL Estim Creat Clear Calc Not Reportable Estimated GFR 39 L (59 - ) Glucose 132 H (65-110) mg/dL Lactic Acid 17.8 H* (0.7-2.0) mmol/L Calcium 10.0 (8.4-10.2) mg/dL Magnesium 2.6 H (1.6-2.3) mg/dL Total Bilirubin 1.1 (0.2-1.3) mg/dL AST 39 (17-59) U/L ALT 31 (6-50) U/L Alkaline Phosphatase 130 H (38-126) U/L Troponin I 0.053 H* (0.000-0.034) ng/mL NT-Pro-B Natriuret Pep 366 H (19.9-100) pg/mL Total Protein 8.5 H (6.3-8.2) g/dL Albumin 4.7 (3.5-5.1) g/dL ABG Data ABG results: 12/31/24 12:59 Puncture Site Artline ABG pH 7.145 L* ABG pCO2 36.0 ABG pO2 148.1 H ABG PO2/FiO2 Ratio 3.70 ABG HCO3 12.1 L ABG O2 Saturation 98.3 ABG O2 Content 17.2 ABG Base Excess -15.8 A-a Gradient 198.2 Oxyhemoglobin 97.1 Total Hemoglobin 12.4 O2 Delivery Device Ventilator O2 Liters/Min Not Reportable Vent Rate 16 FiO2 40 Critical Care Time Critical Care Time Critical Care Time: Yes Total Critical Care Time: 75 Discharge Plan Discharge Clinical Impression: Aortic occlusion Patient Disposition: Home Condition: Stable Instructions: Antibiotic Form Patient Language: Ivorian Prescriptions: No Action oxcarbazepine [Trileptal] 300 mg Tablet 300 mg PO Q12HR Qty: 60 0RF Follow-up/Referrals: UNKNOWN,DOCTOR [Primary Care Provider]
[2024-12-31] MEDS: FENTANYL 2,500MCG/NS250ML(*CRX 2,500 MCG/250 ML BAG 10 MCG IV CONT (14:22)
[2024-12-31] MEDS: PIPERACILLIN/TAZOBACTAM SOD 3.375 GM in SODIUM CHLORIDE 0.9% IV 50 ML 100 ML IVPB (14:42)
[2024-12-31] MEDS: HEPARIN SOD/D5W 100 UNITS/ML 25,000 UNITS/250 ML BAG 10 UNITS IV CONT (15:02)
--- NOTE | 2024-12-31 15:02 | PC.NURSE ---
RN gave report to Jenn AYALA at transferring facility. RN gave report to EMS for transfer. Family at bedside now and aware of transfer and will be driving to [place] via private vehicles.
--- NOTE | 2024-12-31 15:14 | PC.NURSE ---
14:00 Arterial blood pressure :158/78, left arm blood pressure showing 103/83, right arm blood pressure showing 158/78. MD in room to see shift of blood pressure readings from left arm to right arm. Arterial line blood pressures: note blood pressures on left arm in vitals charting compared to arterial blood pressures below. 14:02 154/76 14:09 161/76 14:15 157/80 14:24 158/80 14:30 157/81 14:40 152/79 14:40 145/76
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
== END 2024-12-31 15:47 | disposition short-term general hospital (02) ==
PROVIDERS: Emergency Medicine; Emergency Provider Emergency Medicine
DX: I71.43 Infrarenal abdominal aortic aneurysm, without rupture (principal); I47.10 Supraventricular tachycardia, unspecified; R09.02 Hypoxemia; F17.210 Nicotine dependence, cigarettes, uncomplicated
CPT/HCPCS: 36415; 36556; 36600; 71275; 75635; 80053; 82805; 83605; 83735; 83880; 84484; 85018; 85025; 85610; 85730; 93005; 94002; 96361; 96365; 96375; 96376; 99291; C1751; J1171; J1644; J2250; J2543; J3010; J7030; J7120; Q9967